=== PATIENT | female | born 2000 | race Caucasian/White ===

== ENCOUNTER 2020-07-20 08:07 | Inpatient (IN) ==
[2020-07-20] MEDS ORDERED: OXYTOCIN 30 UNITS/500 ML BAG IV PRN (09:20)
[2020-07-20] MEDS: LACTATED RINGER'S 1,000 ML IV PRN (09:30)
[2020-07-20 09:44] LABS: Hematocrit (blood only) 33.2 % (37-47); Hemoglobin 10.7 g/dL (12.0-16.0); Mean Corpuscular Hemoglobin 23.7 pg (25-34); Mean Corpuscular Hgb Conc 32.2 g/dL (32-36); Mean Corpuscular Volume 73.6 fL (80-100); Mean Platelet Volume 9.7 fL (7.4-10.4); Platelet Count 217 K/uL (130-400); RDW Coefficient of Variation 15.5 % (11.5-14.5); RDW Standard Deviation 41.6 fL (36.4-46.3); Red Blood Count 4.51 M/uL (4.2-5.4); White Blood Count 10.64 K/uL (4.8-10.8)
--- NOTE | 2020-07-20 09:44 | Obstetrical Progress Note ---
Date of Service July 20, 2020 Assessment & Plan Admission and Anticipated Discharge Date Admission Date: July 20, 2020 Subjective Admit Note 20 F P0000 at 40.6 weeks admitted fo induction of labor for post dates. GBS is negative. Covid is pending. FHT Cat 1. Cervix closed/50/- 3/vertex/intact/posterior. EFW [address] Cervidil for cervical ripening. Discussed with patient and spouse. Results & Data ([facility]) Vital Signs (Past 12 Hours) Vital Signs Temp Pulse Resp BP Pulse Ox 07/20/20 09:39 92 H 100 07/20/20 09:36 94 H 143/85 H 07/20/20 09:34 91 H 100 07/20/20 09:29 98 H 100 07/20/20 09:24 110 H 158/94 H 97 07/20/20 09:12 103 H 99 07/20/20 09:07 100 H 100 07/20/20 09:04 96 H 149/95 H 07/20/20 09:02 96 H 100 07/20/20 09:00 20 07/20/20 08:57 109 H 100 07/20/20 08:52 98 H 98 07/20/20 08:47 116 H 100 07/20/20 08:45 36.6 C 22 07/20/20 08:42 116 H 98 07/20/20 08:30 36.6 C 20
[2020-07-20] MEDS ORDERED: DINOPROSTONE 10 MG INSERT PV ONE (10:00)
--- NOTE | 2020-07-20 10:03 | Obstetrical Progress Note ---
Date of Service July 20, 2020 Assessment & Plan Admission and Anticipated Discharge Date Admission Date: July 20, 2020 Subjective Cervidil 10 mg placed vaginally. FH Cat 1. Results & Data ([facility]) Vital Signs (Past 12 Hours) Vital Signs Temp Pulse Resp BP Pulse Ox 07/20/20 09:59 103 H 100 07/20/20 09:54 92 H 99 07/20/20 09:52 95 H 139/96 07/20/20 09:49 89 100 07/20/20 09:44 93 H 99 07/20/20 09:39 92 H 100 07/20/20 09:36 94 H 143/85 H 07/20/20 09:34 91 H 100 07/20/20 09:30 20 07/20/20 09:29 98 H 100 07/20/20 09:24 110 H 158/94 H 97 07/20/20 09:12 103 H 99 07/20/20 09:07 100 H 100 07/20/20 09:04 96 H 149/95 H 07/20/20 09:02 96 H 100 07/20/20 09:00 20 07/20/20 08:57 109 H 100 07/20/20 08:52 98 H 98 07/20/20 08:47 116 H 100 07/20/20 08:45 36.6 C 22 07/20/20 08:42 116 H 98 07/20/20 08:30 36.6 C 20
[2020-07-20] MEDS ORDERED: BUTORPHANOL TARTRATE 1 MG/ML VIAL IV PRN (23:47)
[2020-07-21] MEDS: miSOPROStoL 50 MCG TAB PO SCH ×2 (00:17→12:21)
--- NOTE | 2020-07-21 07:26 | History & Physical Bridge Note ---
Date of Service July 21, 2020 History & Physical Bridge Note I have examined the patient, reviewed the History & Physical and in the interval since the performance of the History & Physical I have noted the following changes of clinical significance: no changes noted
[2020-07-21] MEDS ORDERED: OXYTOCIN 30 UNITS/500 ML BAG IV PRN (12:16)
--- NOTE | 2020-07-21 12:16 | Obstetrical Progress Note ---
Date of Service July 21, 2020 Assessment & Plan Admission and Anticipated Discharge Date Admission Date: July 20, 2020 Physical Exam Genitourinary: Manual OB Exam: + cervical dilation 2 cm, + cervical effacement 60% and + station high OB Exam Monitor Tracing: + external FHT monitor used, + external uterine monitor used, + category I and + normal FHT variability EFW 8-8.5 lbs. Will start Oxytocin to augment contractions Results & Data ([facility]) Vital Signs (Past 12 Hours) Vital Signs Temp Pulse Resp BP 07/21/20 11:51 90 131/91 07/21/20 11:49 37.1 C 91 H 20 132/91 07/21/20 07:07 36.7 C 20 07/21/20 07:05 82 125/72 07/21/20 00:16 100 H 129/93
[2020-07-21] MEDS: LACTATED RINGER'S 1,000 ML IV PRN ×2 (12:20→19:53)
--- NOTE | 2020-07-21 12:27 | Anesthesiology Consultation ---
Date of Service July 21, 2020 Assessment & Plan Chart Review Chart Review: Acceptable Risk for Surgery and Patient NOT seen in Pre Admission Testing Consults Requested none ASA ASA2 Proposed Anesthesia Anesthesia Type: Labor Epidural and CSE History Height/Weight Height: 5 ft 5 in Weight: 92.986 kg Allergies Allergy/AdvReac Type Severity Reaction Status Date / Time No Known Allergies Allergy Unverified 07/20/20 08:34 Medications Home Medications Medication Instructions Recorded Confirmed Last Taken prenat.vits,alessandro,[id number]-[id number] 1 tab PO DAILY 07/20/20 07/20/20 07/19/20 [ Vitamin] Active Medications Generic Name Dose Route Start Last Admin Trade Name Freq PRN Reason Stop Dose Admin Lactated Ringer's 1,000 mls @ 125 mls/hr 07/20/20 09:20 07/21/20 12:20 Lr IV 07/22/20 09:19 125 mls/hr .Q8H PRN Administration L&D Protocol Protocol Misoprostol 50 mcg 07/21/20 00:00 07/21/20 12:21 Misoprostol 50 Mcg Tab PO 08/20/20 00:00 Not Given BID RICARDO Past Medical History Medical History No significant past medical history Exercise / Class Metabolic Activity II 4-5 Yardwork/Stairs/Walk up hill Past Anesthesia History No Hx of Anesthesia Complications and No Family Hx of Anesthesia Complications History of PONV No Hx of PONV and No Hx of Motion Sickness Social History Smoking Status: Never smoker Hx Alcohol Use: No Hx Substance Use: No substance use type: does not use Physical Exam Vital Signs Last Vital Signs Temp 37.1 C 07/21/20 11:49 Pulse 90 07/21/20 11:51 Resp 20 07/21/20 11:49 BP 131/91 07/21/20 11:51 Pulse Ox 100 07/20/20 10:39 Testing Laboratory Results 07/20/20 09:28
--- NOTE | 2020-07-21 17:28 | Obstetrical Progress Note ---
Date of Service July 21, 2020 Assessment & Plan Admission and Anticipated Discharge Date Admission Date: July 20, 2020 Physical Exam Genitourinary: Manual OB Exam: + cervical dilation 2 cm, + cervical effacement 60% and + station high OB Exam Monitor Tracing: + external FHT monitor used, + external uterine monitor used, + category I and + normal FHT variability Results & Data ([facility]) Vital Signs (Past 12 Hours) Vital Signs Temp Pulse Resp BP 07/21/20 17:02 88 142/95 H 07/21/20 16:40 98 H 150/93 H 07/21/20 16:27 98 H 139/94 07/21/20 16:10 36.8 C 77 16 131/84 07/21/20 15:26 86 135/95 07/21/20 14:26 86 16 129/81 07/21/20 13:26 83 20 139/91 07/21/20 13:10 85 145/90 H 07/21/20 12:56 88 18 138/81 07/21/20 12:39 83 135/89 07/21/20 11:51 90 131/91 07/21/20 11:49 37.1 C 91 H 20 132/91 07/21/20 07:07 36.7 C 20 07/21/20 07:05 82 125/72
[2020-07-22] MEDS ORDERED: SODIUM CHLORIDE 0.9% INJ 10 ML VIAL ONE (02:35)
[2020-07-22] MEDS ORDERED: ePHEDrine sulfate 50 MG/ML AMP ONE (02:35)
[2020-07-22] MEDS ORDERED: BUPIVACAINE 0.25% 30 ML VIAL ONE (02:35)
[2020-07-22] MEDS ORDERED: fentaNYL 2MCG/ML ROPIVACAINE 1.25MG/ML 100 ML BAG EPI ONE (02:36)
[2020-07-22] MEDS ORDERED: fentaNYL citrate 100 MCG/2 ML VIAL ONE ×2 (02:36→19:36)
[2020-07-22] MEDS: LACTATED RINGER'S 1,000 ML IV PRN ×2 (03:11→06:32)
[2020-07-22] MEDS ORDERED: NALOXONE HCL 1 MG in SODIUM CHLORIDE 0.9% 1000ML 1,000 ML IV PRN (03:19)
[2020-07-22] MEDS ORDERED: diphenhydrAMINE 50 MG/ML VIAL IV PRN (03:19)
[2020-07-22] MEDS ORDERED: NALOXONE HCL 0.4 MG/1 ML VIAL/CARP IV PRN (03:19)
[2020-07-22] MEDS ORDERED: ePHEDrine sulfate 50 MG/ML AMP IV PRN (03:19)
[2020-07-22] MEDS ORDERED: ONDANSETRON INJ 2 MG/ML 2 ML VIAL IV PRN (03:19)
[2020-07-22] MEDS ORDERED: PROMETHAZINE HCL 25 MG in SODIUM CHLORIDE 0.9% 50 ML IV PRN (03:19)
--- NOTE | 2020-07-22 08:03 | History & Physical Report ---
Date of Service July 22, 2020 Assessment & Plan (1) Post-term , 40-42 weeks of gestation: 20 yo at 41.1 wks , IOL since 07/20 VSS Afebrile FHR ressuring GBS neg LE, abd skin edema on Pitocin, AROM;ed with clear fluid Labs and Continue to monitor closely (2) Vulvar edema: (3) Bilateral lower extremity edema: Admission and Anticipated Discharge Date Admission Date: July 20, 2020 History of Present Illness Primary Care Provider: Samantha Jones DO Patient is a 20 yo at 41.1 wks, admitted on by Dr Greenberg for IOL Received Cervidil and 1 dose of PO Cytotec and was started on Pitocin yesterday at noon Now at 13 miu/min Received Epidural for pain Comfortable now No pain/ ARCE/ Change in vision/ N&V/ COVID symptoms Her has been uncomplicated except Chlamydia at NOB visit [facility] negative GBS neg CIVD testing neg Allergies Allergy/AdvReac Type Severity Reaction Status Date / Time No Known Allergies Allergy Unverified 07/20/20 08:34 Home Medications Medication Instructions Recorded Confirmed Type prenat.vits,alessandro,[id number] 1 tab PO DAILY 07/20/20 07/20/20 History [ Vitamin] Patient History Medical History No significant past medical history Social History Smoking Status: Never smoker Hx Alcohol Use: No Hx Substance Use: No Preferred Language: Armenian Communication Ability: Effective Beliefs That Will Affect Care: None marital status: Single Current Living Situation: Significant Other Other Information That Helps Us Care for You: No Feels Safe at Home: Yes Safety Concerns: Feels Safe At This Time Assistive Devices: None HEALTHCARE EDUCATOR History No h/o HSV/ Gonorrhea Review of Systems All systems reviewed & are unremarkable except as noted in HPI & below Physical Exam Constitutional: WD/WN, vitals as above well developed and well nourished Gastrointestinal (Abdomen): normal bowel sounds, soft, nontender, no hepatosplenomegaly (gravid, Leopolld 8 lb, skin edema+) Bed side US by my self: vertex, EFW 3608 gr, placenta anterior, AFV normal Musculoskeletal: LE; 2+/2+ edema, No redness, NT Genitourinary: normal external appearance (edema on bilateral labia) Manual OB Exam: + cervical dilation 4 cm, + cervical effacement 70%, + station -2 and + amniotic fluid (AROM'ed clear) OB Exam Monitor Tracing: + external uterine monitor used and + category I Results & Data ([facility]) Vital Signs (Past 12 Hours) Vital Signs Temp Pulse Resp BP Pulse Ox 07/22/20 07:52 102 H 100 07/22/20 07:47 92 H 100 07/22/20 07:42 94 H 100 07/22/20 07:37 81 99 07/22/20 07:33 77 125/79 07/22/20 07:32 79 99 07/22/20 07:27 85 99 07/22/20 07:22 85 99 07/22/20 07:17 83 100 07/22/20 07:12 79 100 07/22/20 07:07 86 100 07/22/20 07:02 84 99 07/22/20 07:01 36.8 C 93 H 16 125/85 07/22/20 06:57 84 99 07/22/20 06:52 81 99 07/22/20 06:47 79 99 07/22/20 06:42 79 98 07/22/20 06:37 77 99 07/22/20 06:32 84 99 07/22/20 06:31 85 125/81 07/22/20 06:27 82 99 07/22/20 06:22 84 98 07/22/20 06:17 78 99 07/22/20 06:12 80 99 07/22/20 06:07 82 100 07/22/20 06:02 89 100 07/22/20 05:57 102 H 100 07/22/20 05:52 105 H 100 07/22/20 05:47 73 99 07/22/20 05:46 80 128/83 07/22/20 05:42 75 98 07/22/20 05:37 76 99 07/22/20 05:32 76 99 07/22/20 05:30 74 122/76 07/22/20 05:27 76 100 07/22/20 05:22 79 100 07/22/20 05:17 75 100 02/24/21 05:15 70 121/76 07/22/20 05:12 77 100 07/22/20 05:07 78 100 07/22/20 05:02 73 100 07/22/20 05:00 77 124/83 07/22/20 04:57 79 100 07/22/20 04:52 81 99 07/22/20 04:47 80 100 07/22/20 04:46 76 127/82 07/22/20 04:42 76 99 07/22/20 04:37 73 99 07/22/20 04:32 78 100 07/22/20 04:30 80 124/81 07/22/20 04:27 77 99 07/22/20 04:22 79 99 07/22/20 04:17 77 100 07/22/20 04:15 78 123/77 07/22/20 04:12 78 100 07/22/20 04:07 88 100 07/22/20 04:02 87 100 07/22/20 04:00 90 129/92 07/22/20 03:57 88 100 07/22/20 03:52 80 99 07/22/20 03:47 74 100 07/22/20 03:45 78 122/77 07/22/20 03:42 78 99 07/22/20 03:37 81 100 07/22/20 03:32 89 98 07/22/20 03:28 100 H 128/66 07/22/20 03:27 90 99 07/22/20 03:26 98 H 128/73 07/22/20 03:24 94 H 127/75 07/22/20 03:22 92 H 125/75 100 07/22/20 03:20 94 H 129/79 07/22/20 03:18 92 H 138/81 07/22/20 03:17 92 H 100 07/22/20 03:16 91 H 140/81 07/22/20 03:14 100 H 139/83 07/22/20 03:12 117 H 100 07/22/20 03:07 106 H 100 07/22/20 03:02 106 H 100 07/22/20 02:57 131 H 99 07/22/20 02:52 118 H 100 07/22/20 02:47 92 H 100 07/22/20 02:42 89 98 07/21/20 23:40 87 132/81 Code Status & VTE Plan VTE Prophylaxis Plan VTE Prophylaxis will be ordered: No
[2020-07-22 08:47] LABS: Basophils # (auto) 0.01 K/uL (0-0.2); Basophils % (auto) 0.1 %; Eosinophils # (auto) 0.04 K/uL (0-0.5); Eosinophils % (auto) 0.4 %; Hematocrit (blood only) 33.1 % (37-47); Hemoglobin 10.6 g/dL (12.0-16.0); Immature Granulocytes # (auto) 0.03 K/uL (0.00-0.02); Immature Granulocytes % (auto) 0.3 %; Lymphocytes # (auto) 1.57 K/uL (1.2-3.4); Lymphocytes % (auto) 15.2 %; Mean Corpuscular Hemoglobin 23.4 pg (25-34); Mean Corpuscular Volume 73.1 fL (80-100); Mean Platelet Volume 9.4 fL (7.4-10.4); Monocytes # (auto) 0.98 K/uL (0.11-0.59); Monocytes % (auto) 9.5 %; Neutrophils # (auto) 7.69 K/uL (1.4-6.5); Neutrophils % (auto) 74.5 %; Platelet Count 198 K/uL (130-400); RDW Coefficient of Variation 15.5 % (11.5-14.5); RDW Standard Deviation 41.4 fL (36.4-46.3); Red Blood Count 4.53 M/uL (4.2-5.4); White Blood Count 10.32 K/uL (4.8-10.8)
[2020-07-22 09:19] LABS: Alanine Aminotransferase 13 U/L (12-78); Albumin Level 2.3 gm/dl (3.4-5.0); Aspartate Aminotransferase 12 U/L (15-37); Blood Urea Nitrogen 11 mg/dl (7-18); Calcium 8.7 mg/dl (8.5-10.1); Carbon Dioxide 22 mmol/L (21-32); Chloride 109 mmol/L (98-107); Est GFR (African American) > 150.0; Glucose Fasting 79 mg/dl (70-99); Potassium 4.3 mmol/L (3.5-5.1); Sodium 139 mmol/L (136-145)
[2020-07-22 09:21] LABS: Albumin Globulin Ratio 0.6 (0.9-2); Alkaline Phosphatase 141 U/L (45-117); Bilirubin,Total 0.4 mg/dl (0.2-1); Globulin 3.6 gm/dl (2.5-4.0); Total Protein 5.9 gm/dl (6.4-8.2)
[2020-07-22] MEDS: fentaNYL 2MCG/ML ROPIVACAINE 1.25MG/ML 100 ML BAG EPI PRN ×3 (11:18→21:46)
[2020-07-22] MEDS: LACTATED RINGER'S 1,000 ML IV SCH ×3 (11:23→20:11)
[2020-07-22] MEDS ORDERED: NURSING L&D Epidural Breakthrough Pain Update ONE (11:41)
--- NOTE | 2020-07-22 12:18 | Obstetrical Progress Note ---
Date of Service July 22, 2020 Assessment & Plan Admission and Anticipated Discharge Date Admission Date: July 20, 2020 Subjective FHR had been categ I until 1200 when had a prolonged decel to 70's Stopped pitocin, started IV bolus, nasal 02 Recovered to 120's, FSE i splaced VE; 6/ 80%/ -1 This morning labs are wnl Still LE and lower abdominal skin edema ++ UOP: dark abut 100 ml in bag BP's WNL SCD's on Continue to monitor closely Results & Data ([facility]) Vital Signs (Past 12 Hours) Vital Signs Temp Pulse Resp BP Pulse Ox 07/22/20 12:14 99 H 127/78 07/22/20 12:12 97 H 100 07/22/20 12:07 137 H 100 07/22/20 12:02 103 H 140/95 100 07/22/20 11:57 81 100 07/22/20 11:52 86 100 07/22/20 11:47 95 H 100 07/22/20 11:42 82 99 07/22/20 11:37 87 99 07/22/20 11:33 36.7 C 89 22 133/80 07/22/20 11:32 88 99 07/22/20 11:27 93 H 99 07/22/20 11:22 91 H 99 07/22/20 11:17 96 H 99 07/22/20 11:12 94 H 100 07/22/20 11:07 100 H 100 07/22/20 11:03 95 H 128/78 07/22/20 11:02 96 H 100 07/22/20 10:57 107 H 100 07/22/20 10:52 89 100 07/22/20 10:47 82 100 07/22/20 10:42 110 H 100 07/22/20 10:37 88 100 07/22/20 10:33 84 16 144/87 H 07/22/20 10:32 90 100 07/22/20 10:27 87 100 07/22/20 10:22 85 100 07/22/20 10:17 102 H 100 07/22/20 10:12 82 100 07/22/20 10:07 86 100 07/22/20 10:06 88 127/84 07/22/20 10:02 93 H 137/91 100 07/22/20 09:57 80 100 07/22/20 09:52 80 99 07/22/20 09:47 81 100 07/22/20 09:42 78 100 07/22/20 09:37 80 100 07/22/20 09:32 88 100 07/22/20 09:31 36.8 C 88 20 134/86 07/22/20 09:27 88 100 07/22/20 09:22 91 H 100 07/22/20 09:17 91 H 100 07/22/20 09:12 83 100 07/22/20 09:07 93 H 100 07/22/20 09:03 86 16 125/77 07/22/20 09:02 96 H 100 07/22/20 09:01 102 H 124/81 07/22/20 08:57 90 100 07/22/20 08:52 92 H 100 07/22/20 08:47 86 100 07/22/20 08:42 90 100 07/22/20 08:38 96 H 133/79 07/22/20 08:37 103 H 100 07/22/20 08:32 81 135/90 100 07/22/20 08:27 79 100 07/22/20 08:22 88 100 07/22/20 08:17 93 H 100 07/22/20 08:12 92 H 100 07/22/20 08:07 83 100 07/22/20 08:03 97 H 132/91 07/22/20 08:02 97 H 100 07/22/20 08:01 87 138/96 07/22/20 07:57 96 H 100 07/22/20 07:52 102 H 100 07/22/20 07:47 92 H 100 07/22/20 07:42 94 H 100 07/22/20 07:37 81 99 07/22/20 07:33 77 125/79 07/22/20 07:32 79 99 07/22/20 07:27 85 99 07/22/20 07:22 85 99 07/22/20 07:17 83 100 07/22/20 07:12 79 100 07/22/20 07:07 86 100 07/22/20 07:02 84 99 07/22/20 07:01 36.8 C 93 H 16 125/85 07/22/20 06:57 84 99 07/22/20 06:52 81 99 07/22/20 06:47 79 99 02/24/21 06:42 79 98 07/22/20 06:37 77 99 07/22/20 06:32 84 99 07/22/20 06:31 85 125/81 07/22/20 06:27 82 99 02 06:22 84 98 07/22/20 06:17 78 99 07/22/20 06:12 80 99 07/22/20 06:07 82 100 07/22/20 06:02 89 100 07/22/20 05:57 102 H 100 07/22/20 05:52 105 H 100 07/22/20 05:47 73 99 07/22/20 05:46 80 128/83 07/22/20 05:42 75 98 07/22/20 05:37 76 99 07/22/20 05:32 76 99 07/22/20 05:30 74 122/76 07/22/20 05:27 76 100 07/22/20 05:22 79 100 07/22/20 05:17 75 100 07/22/20 05:15 70 121/76 07/22/20 05:12 77 100 07/22/20 05:07 78 100 07/22/20 05:02 73 100 07/22/20 05:00 77 124/83 07/22/20 04:57 79 100 07/22/20 04:52 81 99 07/22/20 04:47 80 100 07/22/20 04:46 76 127/82 07/22/20 04:42 76 99 07/22/20 04:37 73 99 07/22/20 04:32 78 100 07/22/20 04:30 80 124/81 21 04:27 77 99 07/22/20 04:22 79 99 07/22/20 04:17 77 100 21 04:15 78 123/77 21 04:12 78 100 07/22/20 04:07 88 100 07/22/20 04:02 87 100 21 04:00 90 129/92 21 03:57 88 100 21 03:52 80 99 0224/21 03:47 74 100 21 03:45 78 122/77 07/22/20 03:42 78 99 07/22/20 03:37 81 100 07/22/20 03:32 89 98 07/22/20 03:28 100 H 128/66 07/22/20 03:27 90 99 07/22/20 03:26 98 H 128/73 07/22/20 03:24 94 H 127/75 07/22/20 03:22 92 H 125/75 100 07/22/20 03:20 94 H 129/79 07/22/20 03:18 92 H 138/81 07/22/20 03:17 92 H 100 07/22/20 03:16 91 H 140/81 07/22/20 03:14 100 H 139/83 07/22/20 03:12 117 H 100 07/22/20 03:07 106 H 100 07/22/20 03:02 106 H 100 07/22/20 02:57 131 H 99 07/22/20 02:52 118 H 100 07/22/20 02:47 92 H 100 07/22/20 02:42 89 98
[2020-07-22] MEDS ORDERED: MINERAL OIL 30 ML UDC ONE (15:17)
--- NOTE | 2020-07-22 15:32 | Obstetrical Progress Note ---
Date of Service July 22, 2020 Assessment & Plan Admission and Anticipated Discharge Date Admission Date: July 20, 2020 Subjective Late entry from 12:30 FHR had been categ I, good variability, no decels Will restart pitocin at half dose, 6 miu/min Results & Data ([facility]) Vital Signs (Past 12 Hours) Vital Signs Temp Pulse Resp BP Pulse Ox 07/22/20 15:27 114 H 100 07/22/20 15:22 117 H 100 07/22/20 15:17 112 H 100 07/22/20 15:12 98 H 100 07/22/20 15:07 101 H 99 07/22/20 15:02 113 H 100 07/22/20 15:01 97 H 138/91 07/22/20 14:57 122 H 99 07/22/20 14:52 96 H 100 07/22/20 14:47 97 H 100 07/22/20 14:42 96 H 100 07/22/20 14:37 116 H 100 07/22/20 14:34 97 H 131/75 07/22/20 14:32 100 H 100 07/22/20 14:27 108 H 100 07/22/20 14:22 93 H 100 07/22/20 14:17 101 H 99 07/22/20 14:12 93 H 100 07/22/20 14:07 87 100 07/22/20 14:02 85 129/76 99 07/22/20 13:57 86 100 07/22/20 13:52 85 100 07/22/20 13:47 83 99 07/22/20 13:42 82 99 07/22/20 13:37 87 100 07/22/20 13:34 88 125/82 07/22/20 13:32 91 H 100 07/22/20 13:27 84 100 07/22/20 13:22 36.8 C 89 20 100 07/22/20 13:17 88 100 07/22/20 13:12 88 100 07/22/20 13:07 86 100 07/22/20 13:02 86 100 07/22/20 13:01 83 122/71 07/22/20 12:57 81 100 07/22/20 12:52 84 100 07/22/20 12:47 93 H 100 07/22/20 12:42 89 100 07/22/20 12:37 90 100 07/22/20 12:33 89 119/73 07/22/20 12:32 92 H 100 07/22/20 12:27 111 H 100 07/22/20 12:22 91 H 100 07/22/20 12:17 89 100 07/22/20 12:14 99 H 127/78 07/22/20 12:12 97 H 100 07/22/20 12:07 137 H 100 07/22/20 12:02 103 H 140/95 100 07/22/20 11:57 81 100 07/22/20 11:52 86 100 07/22/20 11:47 95 H 100 07/22/20 11:42 82 99 07/22/20 11:37 87 99 07/22/20 11:33 36.7 C 89 22 133/80 07/22/20 11:32 88 99 07/22/20 11:27 93 H 99 07/22/20 11:22 91 H 99 07/22/20 11:17 96 H 99 07/22/20 11:12 94 H 100 07/22/20 11:07 100 H 100 07/22/20 11:03 95 H 128/78 07/22/20 11:02 96 H 100 07/22/20 10:57 107 H 100 07/22/20 10:52 89 100 07/22/20 10:47 82 100 07/22/20 10:42 110 H 100 07/22/20 10:37 88 100 07/22/20 10:33 84 16 144/87 H 07/22/20 10:32 90 100 07/22/20 10:27 87 100 07/22/20 10:22 85 100 07/22/20 10:17 102 H 100 07/22/20 10:12 82 100 07/22/20 10:07 86 100 07/22/20 10:06 88 127/84 07/22/20 10:02 93 H 137/91 100 07/22/20 09:57 80 100 07/22/20 09:52 80 99 07/22/20 09:47 81 100 07/22/20 09:42 78 100 07/22/20 09:37 80 100 07/22/20 09:32 88 100 07/22/20 09:31 36.8 C 88 20 134/86 07/22/20 09:27 88 100 0224/21 09:22 91 H 100 07/22/20 09:17 91 H 100 07/22/20 09:12 83 100 07/22/20 09:07 93 H 100 07/22/20 09:03 86 16 125/77 07/22/20 09:02 96 H 100 07/22/20 09:01 102 H 124/81 07/22/20 08:57 90 100 07/22/20 08:52 92 H 100 07/22/20 08:47 86 100 07/22/20 08:42 90 100 07/22/20 08:38 96 H 133/79 07/22/20 08:37 103 H 100 07/22/20 08:32 81 135/90 100 07/22/20 08:27 79 100 07/22/20 08:22 88 100 07/22/20 08:17 93 H 100 07/22/20 08:12 92 H 100 07/22/20 08:07 83 100 07/22/20 08:03 97 H 132/91 07/22/20 08:02 97 H 100 07/22/20 08:01 87 138/96 07/22/20 07:57 96 H 100 07/22/20 07:52 102 H 100 07/22/20 07:47 92 H 100 07/22/20 07:42 94 H 100 07/22/20 07:37 81 99 07/22/20 07:33 77 125/79 07/22/20 07:32 79 99 07/22/20 07:27 85 99 07/22/20 07:22 85 99 07/22/20 07:17 83 100 07/22/20 07:12 79 100 07/22/20 07:07 86 100 07/22/20 07:02 84 99 07/22/20 07:01 36.8 C 93 H 16 125/85 07/22/20 06:57 84 99 07/22/20 06:52 81 99 07/22/20 06:47 79 99 07/22/20 06:42 79 98 07/22/20 06:37 77 99 07/22/20 06:32 84 99 07/22/20 06:31 85 125/81 07/22/20 06:27 82 99 07/22/20 06:22 84 98 02/24/21 06:17 78 99 02/24/21 06:12 80 99 02/24/21 06:07 82 100 02/24/21 06:02 89 100 02/24/21 05:57 102 H 100 0224/21 05:52 105 H 100 02/24/21 05:47 73 99 02/24/21 05:46 80 128/83 02/24/21 05:42 75 98 02/24/21 05:37 76 99 0224/21 05:32 76 99 0224/21 05:30 74 122/76 02/24/21 05:27 76 100 02/24/21 05:22 79 100 02/24/21 05:17 75 100 02/24/21 05:15 70 121/76 0224/21 05:12 77 100 0224/21 05:07 78 100 0224/21 05:02 73 100 0224/21 05:00 77 124/83 0224/21 04:57 79 100 0224/21 04:52 81 99 0224/21 04:47 80 100 0224/21 04:46 76 127/82 0224/21 04:42 76 99 02/24/21 04:37 73 99 02/24/21 04:32 78 100 02/24/21 04:30 80 124/81 0224/21 04:27 77 99 0224/21 04:22 79 99 02/24/21 04:17 77 100 0224/21 04:15 78 123/77 0224/21 04:12 78 100 0224/21 04:07 88 100 0224/21 04:02 87 100 02/24/21 04:00 90 129/92 02/24/21 03:57 88 100 02/24/21 03:52 80 99 02/24/21 03:47 74 100 02/24/21 03:45 78 122/77 0224/21 03:42 78 99 02/24/21 03:37 81 100 02/24/21 03:32 89 98
--- NOTE | 2020-07-22 15:43 | Obstetrical Progress Note ---
Date of Service July 22, 2020 Assessment & Plan Admission and Anticipated Discharge Date Admission Date: July 20, 2020 Subjective Patient is reevaluated She has been comfortable FHR had been categ I [place]: ctxs spaced out, Pitocin was decreased to 4miu/min UOP 300 ml for the last shift VE; unchanged, 6cm/ 80%/ -1, IUPC is placed without problems Continue titrate pitocin per ctx pattern Continue to monitor closely Results & Data ([facility]) Vital Signs (Past 12 Hours) Vital Signs Temp Pulse Resp BP Pulse Ox 07/22/20 15:37 91 H 100 07/22/20 15:32 100 H 154/92 H 99 07/22/20 15:27 114 H 100 07/22/20 15:22 117 H 100 07/22/20 15:17 112 H 100 07/22/20 15:12 98 H 100 07/22/20 15:07 101 H 99 07/22/20 15:02 113 H 100 07/22/20 15:01 97 H 138/91 07/22/20 14:57 122 H 99 07/22/20 14:52 96 H 100 07/22/20 14:47 97 H 100 07/22/20 14:42 96 H 100 07/22/20 14:37 116 H 100 07/22/20 14:34 97 H 131/75 07/22/20 14:32 100 H 100 07/22/20 14:27 108 H 100 07/22/20 14:22 93 H 100 07/22/20 14:17 101 H 99 07/22/20 14:12 93 H 100 07/22/20 14:07 87 100 07/22/20 14:02 85 129/76 99 07/22/20 13:57 86 100 07/22/20 13:52 85 100 07/22/20 13:47 83 99 07/22/20 13:42 82 99 07/22/20 13:37 87 100 07/22/20 13:34 88 125/82 07/22/20 13:32 91 H 100 07/22/20 13:27 84 100 07/22/20 13:22 36.8 C 89 20 100 07/22/20 13:17 88 100 07/22/20 13:12 88 100 07/22/20 13:07 86 100 07/22/20 13:02 86 100 02/24/21 13:01 83 122/71 07/22/20 12:57 81 100 07/22/20 12:52 84 100 07/22/20 12:47 93 H 100 07/22/20 12:42 89 100 07/22/20 12:37 90 100 07/22/20 12:33 89 119/73 07/22/20 12:32 92 H 100 07/22/20 12:27 111 H 100 07/22/20 12:22 91 H 100 07/22/20 12:17 89 100 07/22/20 12:14 99 H 127/78 07/22/20 12:12 97 H 100 07/22/20 12:07 137 H 100 07/22/20 12:02 103 H 140/95 100 07/22/20 11:57 81 100 07/22/20 11:52 86 100 07/22/20 11:47 95 H 100 07/22/20 11:42 82 99 07/22/20 11:37 87 99 07/22/20 11:33 36.7 C 89 22 133/80 07/22/20 11:32 88 99 07/22/20 11:27 93 H 99 07/22/20 11:22 91 H 99 07/22/20 11:17 96 H 99 07/22/20 11:12 94 H 100 07/22/20 11:07 100 H 100 07/22/20 11:03 95 H 128/78 07/22/20 11:02 96 H 100 07/22/20 10:57 107 H 100 07/22/20 10:52 89 100 07/22/20 10:47 82 100 07/22/20 10:42 110 H 100 07/22/20 10:37 88 100 07/22/20 10:33 84 16 144/87 H 07/22/20 10:32 90 100 07/22/20 10:27 87 100 07/22/20 10:22 85 100 07/22/20 10:17 102 H 100 07/22/20 10:12 82 100 07/22/20 10:07 86 100 07/22/20 10:06 88 127/84 07/22/20 10:02 93 H 137/91 100 07/22/20 09:57 80 100 02/24/21 09:52 80 99 07/22/20 09:47 81 100 07/22/20 09:42 78 100 07/22/20 09:37 80 100 07/22/20 09:32 88 100 07/22/20 09:31 36.8 C 88 20 134/86 07/22/20 09:27 88 100 07/22/20 09:22 91 H 100 07/22/20 09:17 91 H 100 07/22/20 09:12 83 100 07/22/20 09:07 93 H 100 07/22/20 09:03 86 16 125/77 07/22/20 09:02 96 H 100 07/22/20 09:01 102 H 124/81 07/22/20 08:57 90 100 07/22/20 08:52 92 H 100 07/22/20 08:47 86 100 07/22/20 08:42 90 100 07/22/20 08:38 96 H 133/79 07/22/20 08:37 103 H 100 07/22/20 08:32 81 135/90 100 07/22/20 08:27 79 100 07/22/20 08:22 88 100 07/22/20 08:17 93 H 100 07/22/20 08:12 92 H 100 07/22/20 08:07 83 100 07/22/20 08:03 97 H 132/91 07/22/20 08:02 97 H 100 07/22/20 08:01 87 138/96 07/22/20 07:57 96 H 100 07/22/20 07:52 102 H 100 07/22/20 07:47 92 H 100 07/22/20 07:42 94 H 100 07/22/20 07:37 81 99 07/22/20 07:33 77 125/79 07/22/20 07:32 79 99 07/22/20 07:27 85 99 07/22/20 07:22 85 99 07/22/20 07:17 83 100 07/22/20 07:12 79 100 07/22/20 07:07 86 100 07/22/20 07:02 84 99 07/22/20 07:01 36.8 C 93 H 16 125/85 07/22/20 06:57 84 99 07/22/20 06:52 81 99 07/22/20 06:47 79 99 02/24/21 06:42 79 98 02/24/21 06:37 77 99 02/24/21 06:32 84 99 02/24/21 06:31 85 125/81 02/24/21 06:27 82 99 02/24/21 06:22 84 98 02/24/21 06:17 78 99 02/24/21 06:12 80 99 02/24/21 06:07 82 100 02/24/21 06:02 89 100 02/24/21 05:57 102 H 100 02/24/21 05:52 105 H 100 02/24/21 05:47 73 99 02/24/21 05:46 80 128/83 02/24/21 05:42 75 98 02/24/21 05:37 76 99 02/24/21 05:32 76 99 0224/21 05:30 74 122/76 0224/21 05:27 76 100 02/24/21 05:22 79 100 02/24/21 05:17 75 100 0224/21 05:15 70 121/76 02/24/21 05:12 77 100 02/24/21 05:07 78 100 02/24/21 05:02 73 100 02/24/21 05:00 77 124/83 02/24/21 04:57 79 100 02/24/21 04:52 81 99 02/24/21 04:47 80 100 02/24/21 04:46 76 127/82 02/24/21 04:42 76 99 02/24/21 04:37 73 99 02/24/21 04:32 78 100 02/24/21 04:30 80 124/81 02/24/21 04:27 77 99 02/24/21 04:22 79 99 02/24/21 04:17 77 100 02/24/21 04:15 78 123/77 02/24/21 04:12 78 100 02/24/21 04:07 88 100 02/24/21 04:02 87 100 02/24/21 04:00 90 129/92 02/24/21 03:57 88 100 02/24/21 03:52 80 99 02/24/21 03:47 74 100 02/24/21 03:45 78 122/77 02/24/21 03:42 78 99
--- NOTE | 2020-07-22 19:28 | Obstetrical Progress Note ---
Date of Service July 22, 2020 Assessment & Plan Admission and Anticipated Discharge Date Admission Date: July 20, 2020 Subjective Patient is reevaluated She feels pressure and pain in vagina, pain button has not been helping She states " she is annoyed" [facility] has been in, unable to get regular ctxs pattern despite regular increase in pitocin dose FHR categ I VE; 6-7 cm/ 90%, coned ghead, tip is at +1, much lover than before Recommended bolus from epidural for pain relief and stop pitocin for an hour 9 on it since yesterday noon) Discussed restart pitocin for trial of vaginal vs primary Csection Discussed the risks of Csection as major surgery, bleeding, infection, injury to surrounding organs ( bowels, bladder), DVT, PE, longer recovery Patient wants pain relief and think about it. All questions were answered Results & Data ([facility]) Vital Signs (Past 12 Hours) Vital Signs Temp Pulse Resp BP Pulse Ox 07/22/20 19:18 119 H 99 07/22/20 19:13 102 H 100 07/22/20 19:08 112 H 100 07/22/20 19:06 36.5 C 20 07/22/20 19:03 111 H 99 07/22/20 19:01 112 H 133/86 07/22/20 18:58 114 H 97 07/22/20 18:53 120 H 99 07/22/20 18:48 106 H 99 07/22/20 18:43 122 H 99 07/22/20 18:38 114 H 100 07/22/20 18:33 117 H 98 07/22/20 18:31 102 H 135/81 07/22/20 18:30 20 07/22/20 18:28 115 H 99 07/22/20 18:23 100 H 100 07/22/20 18:18 105 H 100 07/22/20 18:13 100 H 99 07/22/20 18:08 87 99 07/22/20 18:03 101 H 100 07/22/20 18:02 37.0 C 105 H 20 130/79 07/22/20 17:58 92 H 99 07/22/20 17:53 92 H 100 07/22/20 17:48 99 H 99 07/22/20 17:43 96 H 100 07/22/20 17:38 100 H 99 07/22/20 17:33 93 H 99 07/22/20 17:32 97 H 132/79 07/22/20 17:28 94 H 100 07/22/20 17:23 95 H 99 07/22/20 17:18 90 100 07/22/20 17:13 94 H 100 07/22/20 17:08 94 H 100 07/22/20 17:03 91 H 100 07/22/20 17:01 36.9 C 97 H 20 120/85 07/22/20 16:58 105 H 100 07/22/20 16:47 112 H 100 07/22/20 16:42 118 H 100 07/22/20 16:37 94 H 100 07/22/20 16:32 99 H 143/88 H 99 07/22/20 16:27 106 H 99 07/22/20 16:22 97 H 99 07/22/20 16:17 106 H 99 07/22/20 16:12 93 H 98 07/22/20 16:07 93 H 99 07/22/20 16:02 99 H 136/85 99 07/22/20 15:57 93 H 98 07/22/20 15:52 93 H 99 07/22/20 15:47 105 H 99 07/22/20 15:42 110 H 99 07/22/20 15:37 91 H 100 07/22/20 15:32 100 H 154/92 H 99 07/22/20 15:27 114 H 100 07/22/20 15:22 117 H 100 07/22/20 15:17 112 H 100 07/22/20 15:12 98 H 100 07/22/20 15:07 101 H 99 07/22/20 15:02 113 H 100 07/22/20 15:01 36.9 C 97 H 20 138/91 07/22/20 14:57 122 H 99 07/22/20 14:52 96 H 100 07/22/20 14:47 97 H 100 07/22/20 14:42 96 H 100 07/22/20 14:37 116 H 100 07/22/20 14:34 97 H 131/75 07/22/20 14:32 100 H 100 07/22/20 14:27 108 H 100 07/22/20 14:22 93 H 100 07/22/20 14:17 101 H 99 02/24/21 14:12 93 H 100 07/22/20 14:07 87 100 07/22/20 14:02 85 129/76 99 07/22/20 13:57 86 100 07/22/20 13:52 85 100 07/22/20 13:47 83 99 07/22/20 13:42 82 99 07/22/20 13:37 87 100 07/22/20 13:34 88 125/82 07/22/20 13:32 91 H 100 07/22/20 13:27 84 100 07/22/20 13:22 36.8 C 89 20 100 07/22/20 13:17 88 100 07/22/20 13:12 88 100 07/22/20 13:07 86 100 07/22/20 13:02 86 100 07/22/20 13:01 83 122/71 07/22/20 12:57 81 100 07/22/20 12:52 84 100 07/22/20 12:47 93 H 100 07/22/20 12:42 89 100 07/22/20 12:37 90 100 07/22/20 12:33 89 119/73 07/22/20 12:32 92 H 100 07/22/20 12:27 111 H 100 07/22/20 12:22 91 H 100 07/22/20 12:17 89 100 07/22/20 12:14 99 H 127/78 07/22/20 12:12 97 H 100 07/22/20 12:07 137 H 100 07/22/20 12:02 103 H 140/95 100 07/22/20 11:57 81 100 07/22/20 11:52 86 100 07/22/20 11:47 95 H 100 07/22/20 11:42 82 99 07/22/20 11:37 87 99 07/22/20 11:33 36.7 C 89 22 133/80 07/22/20 11:32 88 99 07/22/20 11:27 93 H 99 07/22/20 11:22 91 H 99 07/22/20 11:17 96 H 99 07/22/20 11:12 94 H 100 07/22/20 11:07 100 H 100 07/22/20 11:03 95 H 128/78 07/22/20 11:02 96 H 100 07/22/20 10:57 107 H 100 07/22/20 10:52 89 100 07/22/20 10:47 82 100 07/22/20 10:42 110 H 100 07/22/20 10:37 88 100 07/22/20 10:33 84 16 144/87 H 07/22/20 10:32 90 100 07/22/20 10:27 87 100 07/22/20 10:22 85 100 07/22/20 10:17 102 H 100 07/22/20 10:12 82 100 07/22/20 10:07 86 100 07/22/20 10:06 88 127/84 07/22/20 10:02 93 H 137/91 100 07/22/20 09:57 80 100 07/22/20 09:52 80 99 07/22/20 09:47 81 100 07/22/20 09:42 78 100 07/22/20 09:37 80 100 07/22/20 09:32 88 100 07/22/20 09:31 36.8 C 88 20 134/86 07/22/20 09:27 88 100 07/22/20 09:22 91 H 100 07/22/20 09:17 91 H 100 07/22/20 09:12 83 100 07/22/20 09:07 93 H 100 07/22/20 09:03 86 16 125/77 07/22/20 09:02 96 H 100 07/22/20 09:01 102 H 124/81 07/22/20 08:57 90 100 07/22/20 08:52 92 H 100 07/22/20 08:47 86 100 07/22/20 08:42 90 100 07/22/20 08:38 96 H 133/79 07/22/20 08:37 103 H 100 07/22/20 08:32 81 135/90 100 07/22/20 08:27 79 100 07/22/20 08:22 88 100 07/22/20 08:17 93 H 100 07/22/20 08:12 92 H 100 07/22/20 08:07 83 100 07/22/20 08:03 97 H 132/91 07/22/20 08:02 97 H 100 07/22/20 08:01 87 138/96 07/22/20 07:57 96 H 100 07/22/20 07:52 102 H 100 07/22/20 07:47 92 H 100 07/22/20 07:42 94 H 100 07/22/20 07:37 81 99 07/22/20 07:33 77 125/79 07/22/20 07:32 79 99 07/22/20 07:27 85 99
[2020-07-22] MEDS ORDERED: LIDOCAINE HCL 2% MPF (LOCAL) 5 ML VIAL INFIL ONE (19:36)
[2020-07-22] MEDS ORDERED: LACTATED RINGER'S 1,000 ML IV SCH ×2 (21:00→21:58)
--- NOTE | 2020-07-22 21:02 | Obstetrical Progress Note ---
Date of Service July 22, 2020 Assessment & Plan Admission and Anticipated Discharge Date Admission Date: July 20, 2020 Subjective Patient is reevalauated She still feels pain on LLQ, does not get better with pain button VE; 6-7 cm/ 80%/ 0, cones head, pain is uncomfortable during exam, feels everything FHR categ I Discussed the findings and restarting Oxytocin Patient desires Ceserean section. Does not want to try anymore for vaginal delivery. Understands the risks and signed an informed consent. All questions were answered. Results & Data ([facility]) Vital Signs (Past 12 Hours) Vital Signs Temp Pulse Resp BP Pulse Ox 07/22/20 20:58 116 H 07/22/20 20:53 118 H 99 07/22/20 20:48 117 H 98 07/22/20 20:46 111 H 145/86 H 07/22/20 20:43 117 H 99 07/22/20 20:38 103 H 98 07/22/20 20:33 112 H 99 07/22/20 20:31 105 H 151/86 H 07/22/20 20:28 117 H 98 07/22/20 20:23 101 H 97 07/22/20 20:18 99 H 97 07/22/20 20:17 100 H 142/85 H 07/22/20 20:13 99 H 97 07/22/20 20:08 123 H 100 07/22/20 20:03 95 H 99 07/22/20 20:01 103 H 144/87 H 07/22/20 19:58 106 H 99 07/22/20 19:57 102 H 137/87 07/22/20 19:53 114 H 99 07/22/20 19:51 109 H 126/84 07/22/20 19:48 117 H 99 07/22/20 19:47 115 H 135/95 07/22/20 19:43 110 H 99 07/22/20 19:38 115 H 99 07/22/20 19:33 125 H 99 07/22/20 19:31 101 H 141/97 H 07/22/20 19:28 117 H 98 07/22/20 19:23 121 H 100 07/22/20 19:18 119 H 99 07/22/20 19:13 102 H 100 07/22/20 19:08 112 H 100 07/22/20 19:06 36.5 C 20 07/22/20 19:03 111 H 99 07/22/20 19:01 112 H 133/86 07/22/20 18:58 114 H 97 07/22/20 18:53 120 H 99 07/22/20 18:48 106 H 99 07/22/20 18:43 122 H 99 07/22/20 18:38 114 H 100 07/22/20 18:33 117 H 98 07/22/20 18:31 102 H 135/81 07/22/20 18:30 20 07/22/20 18:28 115 H 99 07/22/20 18:23 100 H 100 07/22/20 18:18 105 H 100 07/22/20 18:13 100 H 99 07/22/20 18:08 87 99 07/22/20 18:03 101 H 100 07/22/20 18:02 37.0 C 105 H 20 130/79 07/22/20 17:58 92 H 99 07/22/20 17:53 92 H 100 07/22/20 17:48 99 H 99 07/22/20 17:43 96 H 100 07/22/20 17:38 100 H 99 07/22/20 17:33 93 H 99 07/22/20 17:32 97 H 132/79 07/22/20 17:28 94 H 100 07/22/20 17:23 95 H 99 07/22/20 17:18 90 100 07/22/20 17:13 94 H 100 07/22/20 17:08 94 H 100 07/22/20 17:03 91 H 100 07/22/20 17:01 36.9 C 97 H 20 120/85 07/22/20 16:58 105 H 100 07/22/20 16:47 112 H 100 07/22/20 16:42 118 H 100 07/22/20 16:37 94 H 100 07/22/20 16:32 99 H 143/88 H 99 07/22/20 16:27 106 H 99 07/22/20 16:22 97 H 99 07/22/20 16:17 106 H 99 07/22/20 16:12 93 H 98 07/22/20 16:07 93 H 99 07/22/20 16:02 99 H 136/85 99 07/22/20 15:57 93 H 98 07/22/20 15:52 93 H 99 07/22/20 15:47 105 H 99 07/22/20 15:42 110 H 99 07/22/20 15:37 91 H 100 07/22/20 15:32 100 H 154/92 H 99 07/22/20 15:27 114 H 100 07/22/20 15:22 117 H 100 07/22/20 15:17 112 H 100 07/22/20 15:12 98 H 100 07/22/20 15:07 101 H 99 07/22/20 15:02 113 H 100 07/22/20 15:01 36.9 C 97 H 20 138/91 07/22/20 14:57 122 H 99 07/22/20 14:52 96 H 100 07/22/20 14:47 97 H 100 07/22/20 14:42 96 H 100 07/22/20 14:37 116 H 100 07/22/20 14:34 97 H 131/75 07/22/20 14:32 100 H 100 07/22/20 14:27 108 H 100 07/22/20 14:22 93 H 100 07/22/20 14:17 101 H 99 07/22/20 14:12 93 H 100 07/22/20 14:07 87 100 07/22/20 14:02 85 129/76 99 07/22/20 13:57 86 100 07/22/20 13:52 85 100 07/22/20 13:47 83 99 07/22/20 13:42 82 99 07/22/20 13:37 87 100 07/22/20 13:34 88 125/82 07/22/20 13:32 91 H 100 07/22/20 13:27 84 100 07/22/20 13:22 36.8 C 89 20 100 07/22/20 13:17 88 100 07/22/20 13:12 88 100 07/22/20 13:07 86 100 07/22/20 13:02 86 100 07/22/20 13:01 83 122/71 07/22/20 12:57 81 100 07/22/20 12:52 84 100 07/22/20 12:47 93 H 100 07/22/20 12:42 89 100 07/22/20 12:37 90 100 07/22/20 12:33 89 119/73 07/22/20 12:32 92 H 100 07/22/20 12:27 111 H 100 07/22/20 12:22 91 H 100 07/22/20 12:17 89 100 07/22/20 12:14 99 H 127/78 07/22/20 12:12 97 H 100 07/22/20 12:07 137 H 100 07/22/20 12:02 103 H 140/95 100 07/22/20 11:57 81 100 07/22/20 11:52 86 100 07/22/20 11:47 95 H 100 07/22/20 11:42 82 99 07/22/20 11:37 87 99 07/22/20 11:33 36.7 C 89 22 133/80 07/22/20 11:32 88 99 07/22/20 11:27 93 H 99 07/22/20 11:22 91 H 99 07/22/20 11:17 96 H 99 07/22/20 11:12 94 H 100 07/22/20 11:07 100 H 100 07/22/20 11:03 95 H 128/78 07/22/20 11:02 96 H 100 07/22/20 10:57 107 H 100 07/22/20 10:52 89 100 07/22/20 10:47 82 100 07/22/20 10:42 110 H 100 07/22/20 10:37 88 100 07/22/20 10:33 84 16 144/87 H 07/22/20 10:32 90 100 07/22/20 10:27 87 100 07/22/20 10:22 85 100 07/22/20 10:17 102 H 100 07/22/20 10:12 82 100 07/22/20 10:07 86 100 07/22/20 10:06 88 127/84 07/22/20 10:02 93 H 137/91 100 07/22/20 09:57 80 100 07/22/20 09:52 80 99 07/22/20 09:47 81 100 07/22/20 09:42 78 100 07/22/20 09:37 80 100 07/22/20 09:32 88 100 07/22/20 09:31 36.8 C 88 20 134/86 07/22/20 09:27 88 100 07/22/20 09:22 91 H 100 07/22/20 09:17 91 H 100 07/22/20 09:12 83 100 07/22/20 09:07 93 H 100 07/22/20 09:03 86 16 125/77 07/22/20 09:02 96 H 100 07/22/20 09:01 102 H 124/81
[2020-07-22] MEDS ORDERED: AZITHROMYCIN 500 MG in DEXTROSE 5% 250 ML IV STA (21:04)
[2020-07-22] MEDS ORDERED: ceFAZolin 2000MG 2,000 MG/15 ML SYR IV SCH (21:15)
[2020-07-22] MEDS ORDERED: CITRIC ACID/SODIUM CITRATE 15 ML UDC ONE (21:19)
[2020-07-22] MEDS: miSOPROStoL 50 MCG TAB PO SCH (23:27)
--- NOTE | 2020-07-22 23:42 | Obstetrical Progress Note ---
Date of Service July 22, 2020 Assessment & Plan Admission and Anticipated Discharge Date Admission Date: July 20, 2020 Subjective Unable to take her to OR due to 2 emergency cases running at the same time and 2 of the anesthesiologist have been with them Patient is comfortable FHR categ I Ctxs spaced out Patient is aware of above Continue to monitor closely Results & Data ([facility]) Vital Signs (Past 12 Hours) Vital Signs Temp Pulse Resp BP Pulse Ox 07/22/20 23:38 101 H 99 07/22/20 23:33 102 H 100 07/22/20 23:28 122 H 100 07/22/20 23:23 117 H 99 07/22/20 23:18 125 H 137/94 100 07/22/20 23:13 107 H 99 07/22/20 23:08 120 H 98 07/22/20 23:03 109 H 99 07/22/20 23:00 36.8 C 18 07/22/20 22:58 118 H 100 07/22/20 22:53 104 H 100 07/22/20 22:48 113 H 99 07/22/20 22:47 112 H 144/101 H 07/22/20 22:43 108 H 99 07/22/20 22:38 120 H 99 07/22/20 22:36 115 H 159/99 H 07/22/20 22:33 122 H 98 07/22/20 22:28 116 H 99 07/22/20 22:23 103 H 99 07/22/20 22:18 111 H 99 07/22/20 22:15 113 H 144/82 H 07/22/20 22:13 107 H 98 07/22/20 22:08 110 H 97 07/22/20 22:03 105 H 98 07/22/20 22:01 110 H 146/86 H 07/22/20 21:58 117 H 100 07/22/20 21:53 112 H 100 07/22/20 21:48 109 H 99 07/22/20 21:43 118 H 100 07/22/20 21:41 110 H 146/91 H 07/22/20 21:38 109 H 100 07/22/20 21:37 110 H 181/101 H 07/22/20 21:33 123 H 100 07/22/20 21:32 118 H 188/111 H 07/22/20 21:28 108 H 98 07/22/20 21:23 107 H 99 07/22/20 21:18 113 H 99 07/22/20 21:16 106 H 20 149/89 H 07/22/20 21:13 115 H 99 07/22/20 21:08 123 H 99 07/22/20 21:03 113 H 99 07/22/20 21:02 110 H 145/87 H 07/22/20 21:00 36.9 C 07/22/20 20:58 116 H 99 07/22/20 20:53 118 H 99 07/22/20 20:48 117 H 98 07/22/20 20:46 111 H 145/86 H 07/22/20 20:43 117 H 99 07/22/20 20:38 103 H 98 07/22/20 20:33 112 H 99 07/22/20 20:31 105 H 151/86 H 07/22/20 20:28 117 H 98 07/22/20 20:23 101 H 97 07/22/20 20:18 99 H 97 07/22/20 20:17 100 H 142/85 H 07/22/20 20:13 99 H 97 07/22/20 20:08 123 H 100 07/22/20 20:03 95 H 99 07/22/20 20:01 103 H 144/87 H 07/22/20 19:58 106 H 99 07/22/20 19:57 102 H 137/87 07/22/20 19:53 114 H 99 07/22/20 19:51 109 H 126/84 07/22/20 19:48 117 H 99 07/22/20 19:47 115 H 135/95 07/22/20 19:43 110 H 99 07/22/20 19:38 115 H 99 07/22/20 19:33 125 H 99 07/22/20 19:31 101 H 141/97 H 07/22/20 19:28 117 H 98 07/22/20 19:23 121 H 100 07/22/20 19:18 119 H 99 07/22/20 19:13 102 H 100 07/22/20 19:08 112 H 100 07/22/20 19:06 36.5 C 20 07/22/20 19:03 111 H 99 07/22/20 19:01 112 H 133/86 07/22/20 18:58 114 H 97 07/22/20 18:53 120 H 99 07/22/20 18:48 106 H 99 07/22/20 18:43 122 H 99 07/22/20 18:38 114 H 100 07/22/20 18:33 117 H 98 07/22/20 18:31 102 H 135/81 07/22/20 18:30 20 07/22/20 18:28 115 H 99 07/22/20 18:23 100 H 100 07/22/20 18:18 105 H 100 07/22/20 18:13 100 H 99 07/22/20 18:08 87 99 07/22/20 18:03 101 H 100 07/22/20 18:02 37.0 C 105 H 20 130/79 07/22/20 17:58 92 H 99 07/22/20 17:53 92 H 100 07/22/20 17:48 99 H 99 07/22/20 17:43 96 H 100 07/22/20 17:38 100 H 99 07/22/20 17:33 93 H 99 07/22/20 17:32 97 H 132/79 07/22/20 17:28 94 H 100 07/22/20 17:23 95 H 99 07/22/20 17:18 90 100 07/22/20 17:13 94 H 100 07/22/20 17:08 94 H 100 07/22/20 17:03 91 H 100 07/22/20 17:01 36.9 C 97 H 20 120/85 07/22/20 16:58 105 H 100 07/22/20 16:47 112 H 100 07/22/20 16:42 118 H 100 07/22/20 16:37 94 H 100 07/22/20 16:32 99 H 143/88 H 99 07/22/20 16:27 106 H 99 07/22/20 16:22 97 H 99 07/22/20 16:17 106 H 99 07/22/20 16:12 93 H 98 07/22/20 16:07 93 H 99 07/22/20 16:02 99 H 136/85 99 07/22/20 15:57 93 H 98 07/22/20 15:52 93 H 99 07/22/20 15:47 105 H 99 07/22/20 15:42 110 H 99 07/22/20 15:37 91 H 100 07/22/20 15:32 100 H 154/92 H 99 07/22/20 15:27 114 H 100 07/22/20 15:22 117 H 100 07/22/20 15:17 112 H 100 07/22/20 15:12 98 H 100 07/22/20 15:07 101 H 99 07/22/20 15:02 113 H 100 07/22/20 15:01 36.9 C 97 H 20 138/91 07/22/20 14:57 122 H 99 07/22/20 14:52 96 H 100 07/22/20 14:47 97 H 100 07/22/20 14:42 96 H 100 07/22/20 14:37 116 H 100 07/22/20 14:34 97 H 131/75 07/22/20 14:32 100 H 100 07/22/20 14:27 108 H 100 07/22/20 14:22 93 H 100 07/22/20 14:17 101 H 99 07/22/20 14:12 93 H 100 07/22/20 14:07 87 100 07/22/20 14:02 85 129/76 99 07/22/20 13:57 86 100 07/22/20 13:52 85 100 07/22/20 13:47 83 99 07/22/20 13:42 82 99 07/22/20 13:37 87 100 07/22/20 13:34 88 125/82 07/22/20 13:32 91 H 100 07/22/20 13:27 84 100 07/22/20 13:22 36.8 C 89 20 100 07/22/20 13:17 88 100 07/22/20 13:12 88 100 07/22/20 13:07 86 100 07/22/20 13:02 86 100 07/22/20 13:01 83 122/71 07/22/20 12:57 81 100 07/22/20 12:52 84 100 07/22/20 12:47 93 H 100 07/22/20 12:42 89 100 07/22/20 12:37 90 100 07/22/20 12:33 89 119/73 07/22/20 12:32 92 H 100 07/22/20 12:27 111 H 100 07/22/20 12:22 91 H 100 07/22/20 12:17 89 100 07/22/20 12:14 99 H 127/78 07/22/20 12:12 97 H 100 07/22/20 12:07 137 H 100 07/22/20 12:02 103 H 140/95 100 07/22/20 11:57 81 100 07/22/20 11:52 86 100 07/22/20 11:47 95 H 100 07/22/20 11:42 82 99
[2020-07-23] MEDS ORDERED: miSOPROStoL 200 MCG TAB ONE (03:26)
[2020-07-23] MEDS ORDERED: MoRPHine SULFATE PF 1 MG/ML 10 ML AMP/VIAL ONE (03:53)
[2020-07-23] MEDS ORDERED: NALOXONE HCL 0.08 MG in SYRINGE 1.8 ML IV PRN (04:15)
[2020-07-23] MEDS ORDERED: diphenhydrAMINE 50 MG/ML VIAL IV PRN ×2 (04:15→22:15)
[2020-07-23] MEDS ORDERED: LACTATED RINGER'S 500 ML IV PRN (04:15)
[2020-07-23] MEDS ORDERED: MoRPHine SULFATE 2 MG/ML CARP IV PRN (04:15)
[2020-07-23] MEDS ORDERED: DC INTRASPINAL MORPHINE SCH (04:15)
[2020-07-23] MEDS ORDERED: ePHEDrine sulfate 50 MG/ML AMP IV PRN (04:15)
[2020-07-23] MEDS ORDERED: HYDROmorphone INJ 0.5 MG/0.5 ML SYR IV PRN (04:15)
[2020-07-23] MEDS ORDERED: NALOXONE HCL 1 MG in SODIUM CHLORIDE 0.9% 1000ML 1,000 ML IV PRN (04:15)
[2020-07-23] MEDS ORDERED: NO NARCOTICS OR SEDATIVES SCH (04:15)
[2020-07-23] MEDS ORDERED: ONDANSETRON INJ 2 MG/ML 2 ML VIAL IV PRN ×2 (04:15→22:15)
[2020-07-23] MEDS ORDERED: SODIUM CHLORIDE 0.9% 1000ML 1,000 ML IV SCH (04:15)
[2020-07-23] MEDS ORDERED: PROMETHAZINE HCL 12.5 MG in SODIUM CHLORIDE 0.9% 50 ML IV PRN (04:15)
[2020-07-23] MEDS ORDERED: METOCLOPRAMIDE HCL 10 MG in SODIUM CHLORIDE 0.9% 50 ML IV PRN (04:15)
[2020-07-23] MEDS ORDERED: NALOXONE HCL 0.4 MG/1 ML VIAL/CARP IV PRN (04:15)
[2020-07-23] MEDS ORDERED: MoRPHine SULFATE PF 1 MG/ML 10 ML AMP/VIAL INT SPINAL ONE (04:15)
--- NOTE | 2020-07-23 04:16 | Anesthesia Procedure Note ---
Date of Service July 23, 2020 Anesthesia Post Epidural Note Vital Signs Vital Signs: Temp Pulse Resp BP Pulse Ox 36.9 C 138 H 20 137/85 99 07/23/20 02:40 07/23/20 03:38 07/23/20 02:40 07/23/20 03:19 07/23/20 03:38 Pain Intensity Abdomen: Pain Intensity: 7 Notes Mental Status: alert / awake / arousable Nausea / Vomiting: adequately controlled Pain: adequately controlled Airway Patency, RR, SpO2: stable & adequate BP & HR: stable & adequate Hydration State: stable & adequate Neuraxial Anesthesia: was administered and sensory block is resolving Anesthetic Complications: no major complications apparent and Pt Satisfied with anesthetic care Epidural: Removed without complications and With tip intact
[2020-07-23] MEDS ORDERED: OXYTOCIN 10 UNITS/ML VIAL ONE ×2 (04:27)
[2020-07-23] MEDS ORDERED: ePHEDrine sulfate 50 MG/ML SYR ONE (04:28)
[2020-07-23] MEDS ORDERED: PHENYLEPHRINE 100MCG/ML 5ML SYR ONE (04:28)
[2020-07-23] MEDS ORDERED: OXYTOCIN 10 UNITS/ML VIAL IM ONE (04:51)
[2020-07-23] MEDS ORDERED: DIPHTHERIA/TETANUS/PERTUSSIS 0.5 ML SYR/VIAL IM ONE (05:18)
[2020-07-23] MEDS ORDERED: BENZOCAINE 20% AER SPR 82.5 GM CAN EXT PRN (05:18)
[2020-07-23] MEDS ORDERED: SENNA 8.6 MG TAB PO PRN (05:18)
[2020-07-23] MEDS ORDERED: MAGNESIUM HYDROXIDE SUSP 30 ML UDC PO PRN (05:18)
[2020-07-23] MEDS ORDERED: SUPERCREAM 0.870% 15 GM JAR EXT PRN (05:18)
[2020-07-23] MEDS ORDERED: HYDROCORTISONE ACETATE 25 MG SUPP PR PRN (05:18)
[2020-07-23] MEDS ORDERED: MEASLES, MUMPS & RUBELLA VIRUS VIAL SQ ONE (05:18)
--- NOTE | 2020-07-23 05:22 | Post Operative Brief Note ---
Immediate Post Op Note v1 Date of Surgery July 23, 2020 Pre & Post Diagnosis Operation Date: 07/22/20 21:30 Pre-Op Diagnosis: Arrest of dilation Post-Op Diagnosis: Same Delivery of live male child at 0416 I identified the patient and participated in the time-out.: Yes Procedure Operation Date: 07/22/20 21:30 Actual Procedures p Section in OR(Bilateral) - Diane Morrell MD Surgeon Diane Morrell MD Assistant Branch Manager SUMEET FERNANDO RN Estimated Blood Loss 600 Findings Consistent with Post-Op Diagnosis Drains Lopez Catheter Anesthesia Type Spinal Complications none Disposition Disposition: L&D
[2020-07-23] MEDS ORDERED: LACTATED RINGER'S 1,000 ML IV SCH (05:30)
[2020-07-23] MEDS ORDERED: CITRIC ACID/SODIUM CITRATE 15 ML UDC PO SCH (06:00)
--- NOTE | 2020-07-23 06:26 | Anesthesiology Progress Note ---
Date of Service July 23, 2020 Anesthesia Post Procedure Vital Signs Vital Signs: Temp Pulse Resp BP Pulse Ox 07/23/20 06:20 99 H 100 07/23/20 06:15 100 H 16 132/74 100 07/23/20 06:10 110 H 100 07/23/20 06:05 103 H 18 129/68 100 07/23/20 06:00 105 H 100 07/23/20 05:55 111 H 18 135/69 100 07/23/20 05:50 109 H 100 07/23/20 05:45 100 H 18 124/68 100 07/23/20 05:40 108 H 100 07/23/20 05:35 118 H 18 122/72 100 07/23/20 05:30 118 H 100 07/23/20 05:25 109 H 18 121/66 100 07/23/20 05:20 105 H 99 07/23/20 05:15 36.6 C 112 H 18 114/58 L 100 07/23/20 03:38 138 H 99 07/23/20 03:33 141 H 99 07/23/20 03:28 140 H 99 07/23/20 03:23 124 H 98 07/23/20 03:19 120 H 137/85 07/23/20 03:18 125 H 99 07/23/20 03:13 108 H 97 07/23/20 03:08 107 H 97 07/23/20 03:03 106 H 97 07/23/20 02:58 103 H 96 07/23/20 02:53 102 H 97 07/23/20 02:48 110 H 136/84 96 07/23/20 02:43 110 H 97 07/23/20 02:40 36.9 C 20 07/23/20 02:38 122 H 98 07/23/20 02:33 114 H 96 07/23/20 02:28 105 H 97 07/23/20 02:23 111 H 98 07/23/20 02:18 105 H 134/82 96 07/23/20 02:13 107 H 97 07/23/20 02:08 106 H 98 07/23/20 02:03 106 H 97 07/23/20 01:58 106 H 97 07/23/20 01:53 110 H 97 07/23/20 01:50 107 H 134/85 07/23/20 01:48 115 H 97 07/23/20 01:43 106 H 97 07/23/20 01:38 115 H 97 07/23/20 01:33 106 H 97 07/23/20 01:28 106 H 96 07/23/20 01:23 111 H 97 07/23/20 01:18 113 H 132/82 99 07/23/20 01:13 136 H 98 07/23/20 01:08 102 H 97 07/23/20 01:03 106 H 97 07/23/20 00:58 127 H 99 07/23/20 00:53 107 H 98 07/23/20 00:48 115 H 132/90 99 07/23/20 00:43 100 H 98 07/23/20 00:38 125 H 100 07/23/20 00:33 116 H 98 07/23/20 00:32 36.8 C 18 07/23/20 00:28 107 H 98 07/23/20 00:23 112 H 99 07/23/20 00:19 105 H 18 140/85 07/23/20 00:18 111 H 98 07/23/20 00:13 115 H 98 07/23/20 00:08 101 H 98 07/23/20 00:03 106 H 98 07/22/20 23:58 106 H 98 07/22/20 23:53 108 H 99 07/22/20 23:49 118 H 142/94 H 07/22/20 23:48 112 H 99 07/22/20 23:43 101 H 100 07/22/20 23:38 101 H 99 07/22/20 23:33 102 H 100 07/22/20 23:28 122 H 100 07/22/20 23:23 117 H 99 07/22/20 23:18 125 H 137/94 100 07/22/20 23:13 107 H 99 07/22/20 23:08 120 H 98 07/22/20 23:03 109 H 99 07/22/20 23:00 36.8 C 18 07/22/20 22:58 118 H 100 07/22/20 22:53 104 H 100 07/22/20 22:48 113 H 99 07/22/20 22:47 112 H 144/101 H 07/22/20 22:43 108 H 99 07/22/20 22:38 120 H 99 07/22/20 22:36 115 H 159/99 H 07/22/20 22:33 122 H 98 07/22/20 22:28 116 H 99 07/22/20 22:23 103 H 99 07/22/20 22:18 111 H 99 07/22/20 22:15 113 H 144/82 H 07/22/20 22:13 107 H 98 07/22/20 22:08 110 H 97 07/22/20 22:03 105 H 98 07/22/20 22:01 110 H 146/86 H 07/22/20 21:58 117 H 100 07/22/20 21:53 112 H 100 07/22/20 21:48 109 H 99 07/22/20 21:43 118 H 100 07/22/20 21:41 110 H 146/91 H 07/22/20 21:38 109 H 100 07/22/20 21:37 110 H 181/101 H 07/22/20 21:33 123 H 100 07/22/20 21:32 118 H 188/111 H 07/22/20 21:28 108 H 98 07/22/20 21:23 107 H 99 07/22/20 21:18 113 H 99 07/22/20 21:16 106 H 20 149/89 H 07/22/20 21:13 115 H 99 07/22/20 21:08 123 H 99 07/22/20 21:03 113 H 99 07/22/20 21:02 110 H 145/87 H 07/22/20 21:00 36.9 C 07/22/20 20:58 116 H 99 07/22/20 20:53 118 H 99 07/22/20 20:48 117 H 98 07/22/20 20:46 111 H 145/86 H 07/22/20 20:43 117 H 99 07/22/20 20:38 103 H 98 07/22/20 20:33 112 H 99 07/22/20 20:31 105 H 151/86 H 07/22/20 20:28 117 H 98 07/22/20 20:23 101 H 97 07/22/20 20:18 99 H 97 07/22/20 20:17 100 H 142/85 H 07/22/20 20:13 99 H 97 07/22/20 20:08 123 H 100 07/22/20 20:03 95 H 99 07/22/20 20:01 103 H 144/87 H 07/22/20 19:58 106 H 99 07/22/20 19:57 102 H 137/87 07/22/20 19:53 114 H 99 07/22/20 19:51 109 H 126/84 07/22/20 19:48 117 H 99 07/22/20 19:47 115 H 135/95 07/22/20 19:43 110 H 99 07/22/20 19:38 115 H 99 07/22/20 19:33 125 H 99 07/22/20 19:31 101 H 141/97 H 07/22/20 19:28 117 H 98 07/22/20 19:23 121 H 100 07/22/20 19:18 119 H 99 07/22/20 19:13 102 H 100 07/22/20 19:08 112 H 100 07/22/20 19:06 36.5 C 20 07/22/20 19:03 111 H 99 07/22/20 19:01 112 H 133/86 07/22/20 18:58 114 H 97 07/22/20 18:53 120 H 99 07/22/20 18:48 106 H 99 07/22/20 18:43 122 H 99 07/22/20 18:38 114 H 100 07/22/20 18:33 117 H 98 07/22/20 18:31 102 H 135/81 07/22/20 18:30 20 07/22/20 18:28 115 H 99 07/22/20 18:23 100 H 100 07/22/20 18:18 105 H 100 07/22/20 18:13 100 H 99 07/22/20 18:08 87 99 07/22/20 18:03 101 H 100 07/22/20 18:02 37.0 C 105 H 20 130/79 07/22/20 17:58 92 H 99 07/22/20 17:53 92 H 100 07/22/20 17:48 99 H 99 07/22/20 17:43 96 H 100 07/22/20 17:38 100 H 99 07/22/20 17:33 93 H 99 07/22/20 17:32 97 H 132/79 07/22/20 17:28 94 H 100 07/22/20 17:23 95 H 99 02/24/21 17:18 90 100 07/22/20 17:13 94 H 100 07/22/20 17:08 94 H 100 07/22/20 17:03 91 H 100 07/22/20 17:01 36.9 C 97 H 20 120/85 07/22/20 16:58 105 H 100 07/22/20 16:47 112 H 100 07/22/20 16:42 118 H 100 07/22/20 16:37 94 H 100 07/22/20 16:32 99 H 143/88 H 99 07/22/20 16:27 106 H 99 07/22/20 16:22 97 H 99 07/22/20 16:17 106 H 99 07/22/20 16:12 93 H 98 07/22/20 16:07 93 H 99 07/22/20 16:02 99 H 136/85 99 07/22/20 15:57 93 H 98 07/22/20 15:52 93 H 99 07/22/20 15:47 105 H 99 07/22/20 15:42 110 H 99 07/22/20 15:37 91 H 100 07/22/20 15:32 100 H 154/92 H 99 07/22/20 15:27 114 H 100 07/22/20 15:22 117 H 100 07/22/20 15:17 112 H 100 07/22/20 15:12 98 H 100 07/22/20 15:07 101 H 99 07/22/20 15:02 113 H 100 07/22/20 15:01 36.9 C 97 H 20 138/91 07/22/20 14:57 122 H 99 07/22/20 14:52 96 H 100 07/22/20 14:47 97 H 100 07/22/20 14:42 96 H 100 07/22/20 14:37 116 H 100 07/22/20 14:34 97 H 131/75 07/22/20 14:32 100 H 100 07/22/20 14:27 108 H 100 07/22/20 14:22 93 H 100 07/22/20 14:17 101 H 99 07/22/20 14:12 93 H 100 07/22/20 14:07 87 100 07/22/20 14:02 85 129/76 99 07/22/20 13:57 86 100 07/22/20 13:52 85 100 07/22/20 13:47 83 99 07/22/20 13:42 82 99 07/22/20 13:37 87 100 07/22/20 13:34 88 125/82 07/22/20 13:32 91 H 100 07/22/20 13:27 84 100 07/22/20 13:22 36.8 C 89 20 100 07/22/20 13:17 88 100 07/22/20 13:12 88 100 07/22/20 13:07 86 100 07/22/20 13:02 86 100 07/22/20 13:01 83 122/71 07/22/20 12:57 81 100 07/22/20 12:52 84 100 07/22/20 12:47 93 H 100 07/22/20 12:42 89 100 07/22/20 12:37 90 100 07/22/20 12:33 89 119/73 07/22/20 12:32 92 H 100 07/22/20 12:27 111 H 100 07/22/20 12:22 91 H 100 07/22/20 12:17 89 100 07/22/20 12:14 99 H 127/78 07/22/20 12:12 97 H 100 07/22/20 12:07 137 H 100 07/22/20 12:02 103 H 140/95 100 07/22/20 11:57 81 100 07/22/20 11:52 86 100 07/22/20 11:47 95 H 100 07/22/20 11:42 82 99 07/22/20 11:37 87 99 07/22/20 11:33 36.7 C 89 22 133/80 07/22/20 11:32 88 99 07/22/20 11:27 93 H 99 07/22/20 11:22 91 H 99 07/22/20 11:17 96 H 99 07/22/20 11:12 94 H 100 07/22/20 11:07 100 H 100 07/22/20 11:03 95 H 128/78 07/22/20 11:02 96 H 100 07/22/20 10:57 107 H 100 07/22/20 10:52 89 100 07/22/20 10:47 82 100 07/22/20 10:42 110 H 100 07/22/20 10:37 88 100 07/22/20 10:33 84 16 144/87 H 07/22/20 10:32 90 100 07/22/20 10:27 87 100 07/22/20 10:22 85 100 07/22/20 10:17 102 H 100 07/22/20 10:12 82 100 07/22/20 10:07 86 100 07/22/20 10:06 88 127/84 07/22/20 10:02 93 H 137/91 100 07/22/20 09:57 80 100 07/22/20 09:52 80 99 07/22/20 09:47 81 100 07/22/20 09:42 78 100 07/22/20 09:37 80 100 07/22/20 09:32 88 100 07/22/20 09:31 36.8 C 88 20 134/86 07/22/20 09:27 88 100 07/22/20 09:22 91 H 100 07/22/20 09:17 91 H 100 07/22/20 09:12 83 100 07/22/20 09:07 93 H 100 07/22/20 09:03 86 16 125/77 07/22/20 09:02 96 H 100 07/22/20 09:01 102 H 124/81 07/22/20 08:57 90 100 07/22/20 08:52 92 H 100 07/22/20 08:47 86 100 07/22/20 08:42 90 100 07/22/20 08:38 96 H 133/79 07/22/20 08:37 103 H 100 07/22/20 08:32 81 135/90 100 07/22/20 08:27 79 100 07/22/20 08:22 88 100 07/22/20 08:17 93 H 100 07/22/20 08:12 92 H 100 07/22/20 08:07 83 100 07/22/20 08:03 97 H 132/91 07/22/20 08:02 97 H 100 07/22/20 08:01 87 138/96 07/22/20 07:57 96 H 100 07/22/20 07:52 102 H 100 07/22/20 07:47 92 H 100 07/22/20 07:42 94 H 100 07/22/20 07:37 81 99 07/22/20 07:33 77 125/79 07/22/20 07:32 79 99 07/22/20 07:27 85 99 07/22/20 07:22 85 99 07/22/20 07:17 83 100 07/22/20 07:12 79 100 07/22/20 07:07 86 100 07/22/20 07:02 84 99 07/22/20 07:01 36.8 C 93 H 16 125/85 07/22/20 06:57 84 99 07/22/20 06:52 81 99 07/22/20 06:47 79 99 07/22/20 06:42 79 98 07/22/20 06:37 77 99 07/22/20 06:32 84 99 07/22/20 06:31 85 125/81 07/22/20 06:27 82 99 Pain Intensity Abdomen: Pain Intensity: 2 Transfer of Care Handoff Completed per policy Notes Mental Status: alert / awake / arousable and participated in evaluation Patient Amnestic to Procedure: Yes Nausea / Vomiting: adequately controlled Pain: adequately controlled Airway Patency, RR, SpO2: stable & adequate BP & HR: stable & adequate Hydration State: stable & adequate Neuraxial Anesthesia: was administered and sensory block is resolving Anesthetic Complications: no major complications apparent
[2020-07-23] MEDS: OXYTOCIN 20 UNITS in LACTATED RINGER'S 1,000 ML IV SCH ×2 (06:47→15:37)
[2020-07-23] MEDS: MEPERIDINE HCL 25 MG/ML CARP/VIAL IV PRN ×2 (06:58→07:15)
[2020-07-23] MEDS: SIMETHICONE 80 MG CHEW PO SCH ×4 (07:40→20:20)
[2020-07-23] MEDS: DOCUSATE SODIUM 100 MG CAP PO SCH ×2 (07:40→20:20)
[2020-07-23] MEDS: PRENATAL VITAMIN 1 TAB PO SCH (07:41)
[2020-07-23] MEDS: miSOPROStoL 50 MCG TAB PO SCH (07:42)
[2020-07-23] MEDS ORDERED: FERROUS SULFATE 325 MG TAB PO SCH (08:00)
--- NOTE | 2020-07-23 08:31 | Operative Report (OR) ---
DATE OF OPERATION: 07/23/2020 PREOPERATIVE DIAGNOSES: The patient is a 20-year-old G1, P0 at 41 weeks and 2 days of gestation, 1) Induction of labor for postdates since 07/20/20 morning 2) Protracted labor, 3) Arrest of dilatation despite adequate uterine contractions, artificial rupture of the membranes and IV Pitocin 4) Suspected cephalopelvic disproportion. POSTOPERATIVE DIAGNOSES: The patient is a 20-year-old G1, P0 at 41 weeks and 2 days of gestation, 1) Induction of labor for postdates since 07/20/20 morning 2) Protracted labor, 3) Arrest of dilatation despite adequate uterine contractions, artificial rupture of the membranes and IV Pitocin 4) Suspected cephalopelvic disproportion. PROCEDURE: Primary low transverse with Pfannenstiel skin incision. SURGEON: Diane Morrell MD. LICENSE DISTRIBUTOR: Janki Clayton RN. ESTIMATED BLOOD LOSS: 600 mL DRAINS: Lopez catheter drained 250 mL of urine. ANESTHESIA: Spinal. ANESTHESIOLOGIST: Karthik Reid MD COMPLICATIONS: None. FINDINGS: Baby was a viable male infant delivered at 04:16 a.m. Apgars were 8/9, weight was 4090 grams. He was in cephalic presentation. Maternal findings, normal uterus, fallopian tubes and ovaries. Diffuse edema of lower extremities, abdominal skin and free fluid in the pelvis. DESCRIPTION OF PROCEDURE: The patient was taken to the operating room where spinal anesthesia was given without difficulty. She was placed in dorsal supine position with a leftward tilt. She was prepared and draped in usual sterile fashion. Pfannenstiel skin incision was made and carried through to the underlying layer of fascia with the Bovie. Fascia was incised in the midline and incision was extended laterally with the help of Clements scissors. Lower aspect of the fascial incision was grasped with 2 Kirill clamps, elevated, underlying rectus muscles were dissected off sharply with Clements scissors and then upper aspect of the fascial incision was grasped with 2 Kirill clamps, elevated, underlying rectus muscles were dissected off sharply with Clements scissors. Rectus muscles were in the midline. Peritoneum was entered bluntly. Peritoneal incision was extended superiorly and inferiorly with good visualization of the bladder. Upon entering the peritoneal cavity, there found a clear fluid in the pelvis about 200 mL. It was suctioned and then vesicouterine peritoneum was identified, grasped with pickups and entered sharply with Metzenbaum scissors. Bladder flap was created digitally and bladder blade was reinserted. Lower uterine segment was incised in transverse fashion, incision was extended laterally with the help of fingers. Membranes were ruptured. Clear fluid was obtained and the baby's head was delivered without difficulty. Shoulders were delivered with minimal traction. Mouth and nose were suctioned. Cord was clamped x2 and cut and at 1 minute delay and baby was handed to the waiting pediatric team and placenta was delivered manually as intact and complete. Uterus was exteriorized, cleared of all clots and debris. The uterine incision was repaired with 0 Vicryl in a running locked fashion and a second imbricating layer was placed with a 0 Vicryl in a running locked fashion. There was a little oozing on the left of lower uterine segment and close to the incision. It was repaired with [id number] stitches x2. Excellent hemostasis was achieved. The cul-de-sac was irrigated and the uterus was returned to the abdomen. The pelvis was irrigated with normal saline and suctioned and then there was a little oozing on the lower uterine segment. It was controlled with [id number] stitches with 3-0 Vicryl and Bella powder was applied to the lower segment as prophylaxis. The bladder flap was reapproximated with 3-0 Vicryl in a running fashion and then incision was checked to be again hemostatic and then parietal peritoneum was reapproximated with 3-0 Vicryl in a running fashion. Rectus muscles were reapproximated with 2- 0 Vicryl in a running fashion. Rectus muscle and under the fascia were hemostatic and then rectus fascia was reapproximated with 0 Vicryl in a running fashion. Subcuticular tissue was brought together with 3-0 Vicryl in a running fashion. Skin was closed with 4-0 Monocryl in a subcuticular fashion. The patient tolerated the procedure well. Sponge, lap, needle count was correct x3 and she received 2 grams of cefazolin and 500 mg of azithromycin before surgery. She was taken to recovery room in stable condition. No complications happened and I was present during whole procedure. I attest to the content of the Intraoperative Record and any orders documented therein. Any exceptions are noted below. AMINATA
[2020-07-23] MEDS ORDERED: ceFAZolin 2000MG 2,000 MG/15 ML SYR IV ONE (12:00)
[2020-07-23] MEDS ORDERED: LACTATED RINGER'S 500 ML IV ONE ×2 (16:20→16:30)
[2020-07-23] MEDS ORDERED: KETOROLAC 30 MG/ML VIAL IV PRN ×2 (16:52→22:15)
[2020-07-23] MEDS ORDERED: diphenhydrAMINE Capsule 25 MG CAP PO PRN (22:15)
[2020-07-23] MEDS ORDERED: MEPERIDINE HCL 50 MG/ML CARP IV PRN (22:15)
[2020-07-23] MEDS ORDERED: PROMETHAZINE HCL 25 MG in SODIUM CHLORIDE 0.9% 50 ML IV PRN (22:15)
[2020-07-23] MEDS: IBUPROFEN 600 MG TAB PO PRN (22:31)
[2020-07-23] MEDS: oxyCODONE/ACETAMINOPHEN 5mg/325mg TAB PO PRN (22:31)
[2020-07-24] MEDS: IBUPROFEN 600 MG TAB PO PRN ×5 (05:30→23:12)
[2020-07-24] MEDS: oxyCODONE/ACETAMINOPHEN 5mg/325mg TAB PO PRN ×5 (05:31→23:12)
[2020-07-24 06:14] LABS: Basophils # (auto) 0.02 K/uL (0-0.2); Basophils % (auto) 0.2 %; Eosinophils # (auto) 0.15 K/uL (0-0.5); Eosinophils % (auto) 1.1 %; Hematocrit (blood only) 25.7 % (37-47); Hemoglobin 8.2 g/dL (12.0-16.0); Immature Granulocytes # (auto) 0.06 K/uL (0.00-0.02); Immature Granulocytes % (auto) 0.5 %; Lymphocytes # (auto) 2.13 K/uL (1.2-3.4); Lymphocytes % (auto) 16.3 %; Mean Corpuscular Hemoglobin 23.4 pg (25-34); Mean Corpuscular Hgb Conc 31.9 g/dL (32-36); Mean Corpuscular Volume 73.4 fL (80-100); Monocytes # (auto) 1.23 K/uL (0.11-0.59); Monocytes % (auto) 9.4 %; Neutrophils # (auto) 9.49 K/uL (1.4-6.5); Neutrophils % (auto) 72.5 %; Platelet Count 203 K/uL (130-400); RDW Coefficient of Variation 16.3 % (11.5-14.5); RDW Standard Deviation 43.1 fL (36.4-46.3); White Blood Count 13.08 K/uL (4.8-10.8)
--- NOTE | 2020-07-24 08:07 | Obstetrical Progress Note ---
Date of Service July 24, 2020 Assessment & Plan Admission and Anticipated Discharge Date Admission Date: July 20, 2020 Subjective Patient is seen and examined. She feels well, no complaints. Pain is under control with oral meds. Ambulating without dizziness Voiding without difficulty Tolerating clear diet with out N&V Flatus none BM none Bleeding is minimal No fever/ chills/ CP/ SOB/ N&V/ Leg pain Breast feeding without problems Vital Signs Temp Pulse Pulse Pulse Resp BP BP 07/24/20 04:05 36.6 C 94 H 16 116/79 07/23/20 23:10 36.8 C 117 H 18 126/85 07/23/20 21:35 16 07/23/20 20:20 18 07/23/20 19:30 36.8 C 112 H 16 117/76 07/23/20 18:30 16 07/23/20 17:30 16 07/23/20 16:30 36.4 C L 113 H 18 108/73 07/23/20 15:40 16 07/23/20 13:59 108 H 16 07/23/20 12:53 114 H 07/23/20 12:40 16 07/23/20 11:15 37 C 122 H 16 105/70 07/23/20 10:15 36.8 C 120 H 16 115/75 07/23/20 09:15 36.7 C 102 H 14 128/81 07/23/20 08:15 36.9 C 107 H 16 118/79 07/23/20 08:06 103 H 145/79 H Pulse Ox 07/24/20 04:05 98 07/23/20 23:10 98 07/23/20 21:35 99 07/23/20 20:20 98 07/23/20 19:30 97 07/23/20 18:30 96 07/23/20 17:30 98 07/23/20 16:30 97 07/23/20 15:40 98 07/23/20 13:59 98 07/23/20 12:53 98 07/23/20 12:40 98 07/23/20 11:15 97 07/23/20 10:15 97 07/23/20 09:15 98 07/23/20 08:15 97 07/23/20 08:06 98 Intake and Output 07/23/20 07/24/20 07/24/20 22:59 06:59 14:59 Intake Total 300 / 1302 Output Total 700 / 1750 500 / 1750 Balance -700 / -448 -200 / -448 Intake: Oral 300 / 300 Output: Urine 500 / 500 Urine Amount (Catheter) 700 / 1250 Lopez/Indwelling 700 / 1250 PE: General: Alert, orientedx3, NAD CVS: S1S2 RRR Lungs; CTAB Abd: soft, NT, ND, BS+, fundus firm, below Umbilicus Incision: Clean, dry, intact Perineum intact, Lochia rubra minimal Ext; NT, LE and abdominal skin edema are much better, Homans sign neg/ neg AP: 20 yo s/p C Section, pod# 1 VSS Afebrile doing well Aenmic, asymptomatic, iron bid Continue routine postop care Encourage ambulation, PO intake All questions were answered Results & Data ([facility]) Vital Signs (Past 12 Hours) Vital Signs Temp Pulse Resp BP Pulse Ox 07/24/20 04:05 36.6 C 94 H 16 116/79 98 07/23/20 23:10 36.8 C 117 H 18 126/85 98 07/23/20 21:35 16 99 07/23/20 20:20 18 98
[2020-07-24] MEDS: DOCUSATE SODIUM 100 MG CAP PO SCH ×2 (08:14→20:49)
[2020-07-24] MEDS: PRENATAL VITAMIN 1 TAB PO SCH (08:14)
[2020-07-24] MEDS: FERROUS SULFATE 325 MG TAB PO SCH ×2 (08:14→16:42)
[2020-07-24] MEDS: SIMETHICONE 80 MG CHEW PO SCH ×4 (08:14→20:48)
[2020-07-24] MEDS: AMOXICILLIN/CLAVULANATE 875 MG TAB PO SCH ×2 (08:20→16:43)
[2020-07-24] MEDS ORDERED: bisacodyL 5 MG TABEC PO SCH (20:00)
[2020-07-25] MEDS ORDERED: bisacodyL 10 MG SUPP PR PRN (05:18)
[2020-07-25] MEDS: oxyCODONE/ACETAMINOPHEN 5mg/325mg TAB PO PRN ×5 (06:19→23:43)
[2020-07-25] MEDS: IBUPROFEN 600 MG TAB PO PRN ×5 (06:19→23:42)
[2020-07-25 06:46] LABS: Hemoglobin 6.8 g/dL (12.0-16.0)
[2020-07-25 07:25] LABS: Hematocrit (blood only) 20.2 % (37-47); Hemoglobin 6.5 g/dL (12.0-16.0); Mean Corpuscular Hemoglobin 23.6 pg (25-34); Mean Corpuscular Hgb Conc 32.2 g/dL (32-36); Mean Corpuscular Volume 73.2 fL (80-100); Mean Platelet Volume 8.4 fL (7.4-10.4); Platelet Count 180 K/uL (130-400); RDW Coefficient of Variation 16.3 % (11.5-14.5); RDW Standard Deviation 42.8 fL (36.4-46.3); Red Blood Count 2.76 M/uL (4.2-5.4); White Blood Count 9.53 K/uL (4.8-10.8)
[2020-07-25 08:04] LABS: Basophils # (auto) 0.01 K/uL (0-0.2); Basophils % (auto) 0.1 %; Eosinophils # (auto) 0.21 K/uL (0-0.5); Eosinophils % (auto) 2.2 %; Immature Granulocytes # (auto) 0.04 K/uL (0.00-0.02); Immature Granulocytes % (auto) 0.4 %; Lymphocytes # (auto) 1.66 K/uL (1.2-3.4); Lymphocytes % (auto) 17.4 %; Monocytes # (auto) 0.93 K/uL (0.11-0.59); Monocytes % (auto) 9.8 %; Neutrophils # (auto) 6.68 K/uL (1.4-6.5); Neutrophils % (auto) 70.1 %; RBC Morphology Unremarkable
[2020-07-25] MEDS: SIMETHICONE 80 MG CHEW PO SCH ×5 (09:01→20:32)
[2020-07-25] MEDS: PRENATAL VITAMIN 1 TAB PO SCH (09:01)
[2020-07-25] MEDS: AMOXICILLIN/CLAVULANATE 875 MG TAB PO SCH ×2 (09:01→18:52)
[2020-07-25] MEDS: DOCUSATE SODIUM 100 MG CAP PO SCH ×2 (09:01→20:32)
[2020-07-25] MEDS: FERROUS SULFATE 325 MG TAB PO SCH ×2 (09:01→18:58)
--- NOTE | 2020-07-25 09:39 | Obstetrical Progress Note ---
Date of Service July 25, 2020 Assessment & Plan Admission and Anticipated Discharge Date Admission Date: July 20, 2020 Results & Data ([facility]) Vital Signs (Past 12 Hours) Vital Signs Temp Pulse Pulse Resp BP Pulse Ox 07/25/20 07:30 36.6 C 105 H 18 136/97 98 07/24/20 23:20 36.5 C 109 H 18 128/85 95
--- NOTE | 2020-07-25 09:43 | Obstetrical Progress Note ---
Date of Service July 25, 2020 Assessment & Plan Admission and Anticipated Discharge Date Admission Date: July 20, 2020 Subjective Patient is seen and examined. She feels well, no complaints. Pain is under control with oral meds. Ambulating without dizziness Voiding without difficulty Tolerating regular diet with out N&V Flatus + BM + Bleeding is minimal No fever/ chills/ CP/ SOB/ N&V/ Leg pain Bottle feeding without problems Vital Signs Temp Pulse Pulse Resp BP Pulse Ox 07/25/20 07:30 36.6 C 105 H 18 136/97 98 07/24/20 23:20 36.5 C 109 H 18 128/85 95 07/24/20 15:40 36.7 C 111 H 16 122/87 98 Lab Results 07/20/20 07/20/20 07/20/20 Range/Units 09:28 09:30 09:30 WBC 10.64 (4.8-10.8) K/uL RBC 4.51 (4.2-5.4) M/uL Hgb 10.7 L (12.0-16.0) g/dL Hct 33.2 L (37-47) % MCV 73.6 L (80-100) fL MCH 23.7 L (25-34) pg MCHC 32.2 (32-36) g/dL RDW Std Deviation 41.6 (36.4-46.3) fL RDW Coeff of Florin 15.5 H (11.5-14.5) % Plt Count 217 (130-400) K/uL MPV 9.7 (7.4-10.4) fL Immature Gran % (Auto) % Neut % (Auto) % Lymph % (Auto) % Orange % (Auto) % Eos % (Auto) % Baso % (Auto) % Neut # (Auto) (1.4-6.5) K/uL Lymph # (Auto) (1.2-3.4) K/uL Orange # (Auto) (0.11-0.59) K/uL Eos # (Auto) (0-0.5) K/uL Baso # (Auto) (0-0.2) K/uL Immature Gran # (Auto) (0.00-0.02) K/uL RBC Morphology Sodium (136-145) mmol/L Potassium (3.5-5.1) mmol/L Chloride (98-107) mmol/L Carbon Dioxide (21-32) mmol/L Anion Gap (3-11) BUN (7-18) mg/dl Creatinine (0.6-1.2) mg/dl Est Cr Clr Drug Dosing ml/min Est GFR ( Amer) Est GFR (Non-Af Amer) POC Glucose (70-99) mg/dl Fasting Glucose (70-99) mg/dl Calcium (8.5-10.1) mg/dl Total Bilirubin (0.2-1) mg/dl AST (15-37) U/L ALT (12-78) U/L Alkaline Phosphatase (45-117) U/L Total Protein (6.4-8.2) gm/dl Albumin (3.4-5.0) gm/dl Globulin (2.5-4.0) gm/dl Albumin/Globulin Ratio (0.9-2) COVID-19 [facility]-2, RNA, NAAT NEGATIVE (NEGATIVE) Blood Type Antibody Screen 07/20/20 07/22/20 07/22/20 Range/Units 10:04 08:38 08:38 WBC 10.32 (4.8-10.8) K/uL RBC 4.53 (4.2-5.4) M/uL Hgb 10.6 L (12.0-16.0) g/dL Hct 33.1 L (37-47) % MCV 73.1 L (80-100) fL MCH 23.4 L (25-34) pg MCHC 32.0 (32-36) g/dL RDW Std Deviation 41.4 (36.4-46.3) fL RDW Coeff of Florin 15.5 H (11.5-14.5) % Plt Count 198 (130-400) K/uL MPV 9.4 (7.4-10.4) fL Immature Gran % (Auto) 0.3 % Neut % (Auto) 74.5 % Lymph % (Auto) 15.2 % Orange % (Auto) 9.5 % Eos % (Auto) 0.4 % Baso % (Auto) 0.1 % Neut # (Auto) 7.69 H (1.4-6.5) K/uL Lymph # (Auto) 1.57 (1.2-3.4) K/uL Orange # (Auto) 0.98 H (0.11-0.59) K/uL Eos # (Auto) 0.04 (0-0.5) K/uL Baso # (Auto) 0.01 (0-0.2) K/uL Immature Gran # (Auto) 0.03 H (0.00-0.02) K/uL RBC Morphology Sodium 139 (136-145) mmol/L Potassium 4.3 (3.5-5.1) mmol/L Chloride 109 H (98-107) mmol/L Carbon Dioxide 22 (21-32) mmol/L Anion Gap 7.0 (3-11) BUN 11 (7-18) mg/dl Creatinine 0.59 L (0.6-1.2) mg/dl Est Cr Clr Drug Dosing 170.0 ml/min Est GFR ( Amer) > 150.0 Est GFR (Non-Af Amer) 131.0 POC Glucose 94 (70-99) mg/dl Fasting Glucose 79 (70-99) mg/dl Calcium 8.7 (8.5-10.1) mg/dl Total Bilirubin 0.4 (0.2-1) mg/dl AST 12 L (15-37) U/L ALT 13 (12-78) U/L Alkaline Phosphatase 141 H (45-117) U/L Total Protein 5.9 L (6.4-8.2) gm/dl Albumin 2.3 L (3.4-5.0) gm/dl Globulin 3.6 (2.5-4.0) gm/dl Albumin/Globulin Ratio 0.6 L (0.9-2) COVID-19 Eval Order SARS-CoV-2, RNA, NAAT (NEGATIVE) Blood Type Antibody Screen 07/22/20 07/24/20 07/25/20 Range/Units 09:28 05:56 06:14 WBC 13.08 H (4.8-10.8) K/uL RBC 3.50 L (4.2-5.4) M/uL Hgb 8.2 L 6.8 L* (12.0-16.0) g/dL Hct 25.7 L 21.0 L (37-47) % MCV 73.4 L (80-100) fL MCH 23.4 L (25-34) pg MCHC 31.9 L (32-36) g/dL RDW Std Deviation 43.1 (36.4-46.3) fL RDW Coeff of Florin 16.3 H (11.5-14.5) % Plt Count 203 (130-400) K/uL MPV 9.0 (7.4-10.4) fL Immature Gran % (Auto) 0.5 % Neut % (Auto) 72.5 % Lymph % (Auto) 16.3 % Orange % (Auto) 9.4 % Eos % (Auto) 1.1 % Baso % (Auto) 0.2 % Neut # (Auto) 9.49 H (1.4-6.5) K/uL Lymph # (Auto) 2.13 (1.2-3.4) K/uL Orange # (Auto) 1.23 H (0.11-0.59) K/uL Eos # (Auto) 0.15 (0-0.5) K/uL Baso # (Auto) 0.02 (0-0.2) K/uL Immature Gran # (Auto) 0.06 H (0.00-0.02) K/uL RBC Morphology Sodium (136-145) mmol/L Potassium (3.5-5.1) mmol/L Chloride (98-107) mmol/L Carbon Dioxide (21-32) mmol/L Anion Gap (3-11) BUN (7-18) mg/dl Creatinine (0.6-1.2) mg/dl Est Cr Clr Drug Dosing ml/min Est GFR ( Amer) Est GFR (Non-Af Amer) POC Glucose (70-99) mg/dl Fasting Glucose (70-99) mg/dl Calcium (8.5-10.1) mg/dl Total Bilirubin (0.2-1) mg/dl AST (15-37) U/L ALT (12-78) U/L Alkaline Phosphatase (45-117) U/L Total Protein (6.4-8.2) gm/dl Albumin (3.4-5.0) gm/dl Globulin (2.5-4.0) gm/dl Albumin/Globulin Ratio (0.9-2) COVID-19 Eval Order SARS-CoV-2, RNA, NAAT (NEGATIVE) Blood Type A Positive Antibody Screen NEGATIVE 07/25/20 Range/Units 07:00 WBC 9.53 (4.8-10.8) K/uL RBC 2.76 L (4.2-5.4) M/uL Hgb 6.5 L* (12.0-16.0) g/dL Hct 20.2 L* (37-47) % MCV 73.2 L (80-100) fL MCH 23.6 L (25-34) pg MCHC 32.2 (32-36) g/dL RDW Std Deviation 42.8 (36.4-46.3) fL RDW Coeff of Florin 16.3 H (11.5-14.5) % Plt Count 180 (130-400) K/uL MPV 8.4 (7.4-10.4) fL Immature Gran % (Auto) 0.4 % Neut % (Auto) 70.1 % Lymph % (Auto) 17.4 % Orange % (Auto) 9.8 % Eos % (Auto) 2.2 % Baso % (Auto) 0.1 % Neut # (Auto) 6.68 H (1.4-6.5) K/uL Lymph # (Auto) 1.66 (1.2-3.4) K/uL Orange # (Auto) 0.93 H (0.11-0.59) K/uL Eos # (Auto) 0.21 (0-0.5) K/uL Baso # (Auto) 0.01 (0-0.2) K/uL Immature Gran # (Auto) 0.04 H (0.00-0.02) K/uL RBC Morphology Unremarkable Sodium (136-145) mmol/L Potassium (3.5-5.1) mmol/L Chloride (98-107) mmol/L Carbon Dioxide (21-32) mmol/L Anion Gap (3-11) BUN (7-18) mg/dl Creatinine (0.6-1.2) mg/dl Est Cr Clr Drug Dosing ml/min Est GFR ( Amer) Est GFR (Non-Af Amer) POC Glucose (70-99) mg/dl Fasting Glucose (70-99) mg/dl Calcium (8.5-10.1) mg/dl Total Bilirubin (0.2-1) mg/dl AST (15-37) U/L ALT (12-78) U/L Alkaline Phosphatase (45-117) U/L Total Protein (6.4-8.2) gm/dl Albumin (3.4-5.0) gm/dl Globulin (2.5-4.0) gm/dl Albumin/Globulin Ratio (0.9-2) COVID-19 Eval Order SARS-CoV-2, RNA, NAAT (NEGATIVE) Blood Type Antibody Screen PE: General: Alert, orientedx3, NAD CVS: S1S2 RRR Lungs; CTAB Abd: soft, NT, ND, BS+, fundus firm, below Umbilicus Incision: Clean, dry, intact Perineum intact, Lochia rubra minimal Ext; NT, minimal edema AP: 20 yo s/p C Section, pod# 2 VSS Afebrile doing well Anemic: asymptomatic but appears pale and HR elevated Discussed the risks of anemia and Recommended blood transfusion but declined Discussed how to take iron and iron rich diet She desires d/c today, recommended to stay until after lunch and she how she would feel before she goes home Continue to monitor Encourage ambulation, PO intake All questions were answered Results & Data ([facility]) Vital Signs (Past 12 Hours) Vital Signs Temp Pulse Pulse Resp BP Pulse Ox 07/25/20 07:30 36.6 C 105 H 18 136/97 98 07/24/20 23:20 36.5 C 109 H 18 128/85 95
[2020-07-25] MEDS ORDERED: SODIUM CHLORIDE 0.9% 250 ML IV PRN ×2 (10:31→10:45)
[2020-07-25] MEDS ORDERED: diphenhydrAMINE Capsule 25 MG CAP PO ONE (10:31)
--- NOTE | 2020-07-25 10:36 | Obstetrical Progress Note ---
Date of Service July 25, 2020 Assessment & Plan (1) hemorrhage: c/sec day #2 Anemia; Hgb 6.0 Tachycardia Recommended transfusion with pt pt agreed consent signed will transfuse 2 PRBC hemorrhage type: delayed hemorrhage Qualified Code(s): O72.2 - Delayed and secondary hemorrhage Subjective Ambulation: ambulating normally Voiding: no voiding problems Passing Gas:: Yes Diet Tolerance:: clear liquids Lochia:: Small Feeding Type:: breast feeding Review of Systems All systems reviewed & are unremarkable except as noted in HPI & below Physical Exam Constitutional WD/WN, vitals as above well developed and well nourished Eyes PERRL, conjunctivae normal, anicteric sclerae ENMT external ear and nose normal, oropharynx normal Neck trachea midline, no thyromegaly Respiratory normal respiratory effort, lungs clear to auscultation Cardiovascular RRR, no murmur, no edema Chest (Breasts) normal inspection/palpation of breasts Gastrointestinal (Abdomen) normal bowel sounds, soft, nontender, no hepatosplenomegaly Musculoskeletal no cyanosis or clubbing, extremities motor strength 5/5 Skin no rashes, warm and dry + incision (Clean,dry and intact) Neurologic patellar DTR's 2+ bilat, sensation intact Psychiatric A+Ox3, euthymic affect Genitourinary normal external appearance Lymphatic no cervical or axillary lymphadenopathy Results & Data ([facility]) Vital Signs (Past 12 Hours) Vital Signs Temp Pulse Pulse Resp BP Pulse Ox 07/25/20 07:30 36.6 C 105 H 18 136/97 98 07/24/20 23:20 36.5 C 109 H 18 128/85 95
[2020-07-25 20:01] LABS: Hematocrit (blood only) 27.1 % (37-47); Hemoglobin 8.8 g/dL (12.0-16.0)
[2020-07-26] MEDS: PRENATAL VITAMIN 1 TAB PO SCH (08:25)
[2020-07-26] MEDS: FERROUS SULFATE 325 MG TAB PO SCH (08:25)
[2020-07-26] MEDS: oxyCODONE/ACETAMINOPHEN 5mg/325mg TAB PO PRN (08:25)
[2020-07-26] MEDS: DOCUSATE SODIUM 100 MG CAP PO SCH (08:25)
[2020-07-26] MEDS: IBUPROFEN 600 MG TAB PO PRN (08:26)
[2020-07-26 08:27] LABS: Hematocrit (blood only) 28.8 % (37-47); Hemoglobin 9.4 g/dL (12.0-16.0)
[2020-07-26] MEDS: AMOXICILLIN/CLAVULANATE 875 MG TAB PO SCH (08:27)
[2020-07-26] MEDS: SIMETHICONE 80 MG CHEW PO SCH (08:32)
--- NOTE | 2020-07-26 09:48 | Obstetrical Progress Note ---
Date of Service July 26, 2020 Assessment & Plan (1) hemorrhage: POD #3 pt doing well Improved H/H after 2 units PRBC disch home with instructions hemorrhage type: delayed hemorrhage Qualified Code(s): O72.2 - Delayed and secondary hemorrhage Results & Data ([facility]) Vital Signs (Past 12 Hours) Vital Signs Temp Pulse Pulse Resp BP Pulse Ox 07/26/20 07:30 36.9 C 98 H 16 127/90 07/25/20 23:15 36.8 C 102 H 16 136/91 97
--- NOTE | 2020-08-01 09:10 | Discharge Summary (DS) ---
DETAILS OF ADMISSION: The patient is a 20-year-old G1, P0 at 40 weeks and 6 days of gestation, who was admitted on 07/20/[address] Greenberg for induction of labor for postdates. Her cervix was closed and vertex presentation. Her GBS was negative. Cervidil was placed for cervical ripening, which stayed for 12 hours and taken out in the evening. She then received p.o. Cytotec and then oxytocin was started on 07/21/2020. When I came to labor and delivery on , she was on oxytocin at 13 milliunits per minute. She already received epidural, she was comfortable. Her cervix was 4 cm dilated, 70% effaced, and her membranes were ruptured. Clear fluid was obtained. Her lower extremities were noted to be a swollen as well as her skin in the lower abdominal wall. She had labs including CBC and CMP and they were within normal limits. She was checked at noon on 07/22/2020, her cervix was 6 cm, 80%, -1 and there was a deceleration on the heart rate and the scalp electrode was applied and heart rate was reassuring, category 1. She was placed in SCDs. She had a Lopez inserted. Urine output was monitored closely and in the afternoon of 07/22/2020, her cervix was still the same and IUPC was placed. She received Pitocin all night and her cervix has not unchanged, it was at 6 cm, 70%, -0 with a coned head. After discussion with the patient, the patient desired for elective primary , did not want labor more. Pitocin was started. She was consented for a primary low transverse . She was taken to the OR and delivered a viable male infant at 04:16 a.m. Apgars were 8/9, weight was 4090 grams. Her surgery was uncomplicated. See dictated op note for details. On postop period, she was doing well. Vital signs stable, afebrile. Urine output was adequate. On postoperative day #1, the patient was doing well. Vital signs stable, afebrile. Lopez was discontinued. She voided in the bathroom without problems. She was tolerating clear diet. Her swelling in the lower extremities and abdomen skin was better. She was . Her incision was clean, dry and intact. She was anemic and started on iron twice a day. On postop day #2, the patient was doing well. Vital signs stable, afebrile. Her pain was under control with oral medication. She was ambulating, passing gas, moved her bowels, tolerating a regular diet, bottle and . Her repeat H and H was 8.2/25.7 on postop day #1, but postop day #2 it dropped to 6.5/20.2. Her pulse was over 100. She looked pale, but she had no other symptoms. She declined blood transfusion despite counseling and recommendations and later she talked to Dr. Dorantes and she agreed for blood transfusion and she signed a consent and she received 2 units of packed red blood cell on postoperative day #2 and postoperative day #3, the patient was doing well. Vital signs stable, afebrile. Her repeat H and H was 9.4/28.8. She was discharged on postop day #3 on 07/26/2020. Discharge instructions were given. Prescriptions were written for pain. She is to be seen in office in a week. All questions were answered. AMINATA
== END 2020-07-26 10:40 | disposition home or self-care (01) ==
LOC: 4S1 08:07 → 4S2 07-23 10:09